=== PATIENT | male | born 1940 | race Caucasian/White ===

== ENCOUNTER 2019-03-25 20:02 | Inpatient (IN) ==
--- NOTE | 2019-03-25 20:08 | Emergency Department Note ---
Disposition Clinical Impression: Pyelonephritis Sepsis Qualifiers: Sepsis type: sepsis due to unspecified organism Sepsis acute organ dysfunction status: without acute organ dysfunction Qualified Code(s): A41.9 - Sepsis, unspecified organism UTI (urinary tract infection) Qualifiers: Urinary tract infection type: acute cystitis Hematuria presence: without hematuria Qualified Code(s): N30.00 - Acute cystitis without hematuria Disposition: Admitted As Inpatient Condition: Fair Time of Disposition: 23:56 General Adult HPI - General Stated complaint: Generalized Weakness Time Seen by Provider: 03/25/19 20:04 - Related Data Home Medications Medication Instructions Recorded Confirmed Aspirin [Lo-Dose Aspirin EC] 81 mg PO HS 03/25/19 03/25/19 Betamethasone Valerate 60 ml TP BID 03/25/19 03/25/19 Calcium Carbonate [Calcium] 500 mg PO BID 03/25/19 03/25/19 Cetirizine HCl [Zyrtec] 10 mg PO HS 03/25/19 03/25/19 Ergocalciferol (VITAMIN D2) 50,000 unit PO Q30D 03/25/19 03/25/19 [Vitamin D2] Fluticasone Propionate Nasal 50 mcg NS DAILY PRN 03/25/19 03/25/19 [Flonase] Glimepiride [Amaryl] 4 mg PO QAM 03/25/19 03/25/19 Levothyroxine [Synthroid] 125 mcg PO 0630 03/25/19 03/25/19 Multivitamin with Minerals/Lut 1 each PO DAILY 03/25/19 03/25/19 [Cerovite Senior Tablet] Potassium Chloride [Klor-Con 10] 20 meq PO DAILY 03/25/19 03/25/19 Simvastatin [Zocor] 20 mg PO HS 03/25/19 03/25/19 Sitagliptin Phos/Metformin HCl 1 each PO BIDWM 03/25/19 03/25/19 [Janumet 50-1,000 mg Tablet] Triamcinolone Acet 0.1% CRM 1 appl TP DAILY PRN 03/25/19 03/25/19 [Kenalog] Triamterene/Hydrochlorothiazid 0.5 tab PO MOWEFR 03/25/19 03/25/19 [Triamterene-Hctz 75-50 mg Tab] Allergies Allergy/AdvReac Type Severity Reaction Status Date / Time oxycodone AdvReac Rash Verified 03/25/19 20:05 Course Vital Signs Temperature 101.1 F H 03/25/19 20:05 Pulse Rate 90 03/25/19 20:05 Respiratory Rate 20 03/25/19 20:05 Blood Pressure 142/54 03/25/19 20:05 O2 Sat by Pulse Oximetry 96 03/25/19 20:05 Temperature 101.1 F H 03/25/19 20:05 Pulse Rate 80 03/25/19 22:44 Respiratory Rate 22 03/25/19 22:44 Blood Pressure 135/66 03/25/19 22:44 O2 Sat by Pulse Oximetry 95 03/25/19 22:44 Oxygen Delivery Oxygen Delivery Room Air Medical Decision Making - Lab Data Result diagrams: 03/25/19 20:05 03/25/19 20:05 Lab Results 03/25/19 03/25/19 03/25/19 Range/Units 20:05 20:05 20:36 WBC 7.1 (4.3-11.1) K/mcL RBC 4.35 (4.19-5.50) M/mcL Hgb 12.8 L (12.9-16.9) g/dL Hct 38.3 (37.5-50.1) % MCV 88.0 (83.0-100.0) fL MCH 29.4 (28.0-33.3) pg MCHC 33.4 (31.6-35.5) g/dL RDW 15.0 H (11.5-14.5) % Plt Count 92 L (140-400) K/mcL MPV 10.8 (9.4-12.4) fL Immature Gran % 0.3 (0-4) % Seg Neutrophils % 82.6 % Lymphocytes % 6.4 % Monocytes % 10.4 % Eosinophils % 0.0 % Basophils % 0.3 % Neutrophils # 5.9 (1.6-8.9) K/mcL Lymphocytes # 0.5 L (0.6-4.6) K/mcL Monocytes # 0.7 (0.0-1.3) K/mcL Eosinophils # 0.0 (0.0-0.6) K/mcL Basophils # 0.0 (0.0-0.2) K/mcL Immature Plt Fraction 3.3 (1.1-6.1) % Sodium 130 L (136-145) mEq/L Potassium 3.7 (3.5-5.1) mEq/L Chloride 96 L (98-107) mEq/L Carbon Dioxide 24 (23-29) mEq/L BUN 20 (8-23) mg/dL Creatinine 1.41 H (0.70-1.30) mg/dL Est GFR ( Amer) 59 L (> 60) Est GFR (Non-Af Amer) 48 L (> 60) BUN/Creatinine Ratio 14 (6-26) Glucose 361 H (70-105) mg/dL Calculated Osmolality 287 (280-300) Lactic Acid 3.9 H (0.5-2.2) mmol/L Calcium 8.4 L (8.6-10.3) mg/dL Phosphorus 1.7 L (2.7-4.5) mg/dL Magnesium 1.7 (1.6-2.6) mg/dL Troponin I < 0.03 (< 0.04) ng/mL Urine Color (Yellow) Urine Clarity (Clear) Urine pH (5.0-8.0) pH Units Ur Specific [place] (1.010-1.025) Urine Protein (Neg-Trace) mg/dL Urine Glucose (UA) (Normal) mg/dL Urine Ketones (Negative) mg/dL Urine Blood (Negative) Urine Nitrite (Negative) Urine Bilirubin (Negative) Urine Urobilinogen (Normal) mg/dL Ur Leukocyte Esterase (Negative) Urine Microscopic RBC (0-3) per hpf Urine Microscopic WBC (0-3) per hpf Ur Squamous Epith Cells (None-Few) per lpf Ur Renal Epithelial Cell (None-Few) per hpf Urine Bacteria (None-Few) per hpf Hyaline Casts (None-Few) per lpf Urine Mucus (Few) Urine Yeast (None Seen) per hpf Ur Culture Indicated? (NO) 03/25/19 Range/Units 20:46 WBC (4.3-11.1) K/mcL RBC (4.19-5.50) M/mcL Hgb (12.9-16.9) g/dL Hct (37.5-50.1) % MCV (83.0-100.0) fL MCH (28.0-33.3) pg MCHC (31.6-35.5) g/dL RDW (11.5-14.5) % Plt Count (140-400) K/mcL MPV (9.4-12.4) fL Immature Gran % (0-4) % Seg Neutrophils % % Lymphocytes % % Monocytes % % Eosinophils % % Basophils % % Neutrophils # (1.6-8.9) K/mcL Lymphocytes # (0.6-4.6) K/mcL Monocytes # (0.0-1.3) K/mcL Eosinophils # (0.0-0.6) K/mcL Basophils # (0.0-0.2) K/mcL Immature Plt Fraction (1.1-6.1) % Sodium (136-145) mEq/L Potassium (3.5-5.1) mEq/L Chloride (98-107) mEq/L Carbon Dioxide (23-29) mEq/L BUN (8-23) mg/dL Creatinine (0.70-1.30) mg/dL Est GFR ( Amer) (> 60) Est GFR (Non-Af Amer) (> 60) BUN/Creatinine Ratio (6-26) Glucose (70-105) mg/dL Calculated Osmolality (280-300) Lactic Acid (0.5-2.2) mmol/L Calcium (8.6-10.3) mg/dL Phosphorus (2.7-4.5) mg/dL Magnesium (1.6-2.6) mg/dL Troponin I (< 0.04) ng/mL Urine Color Yellow (Yellow) Urine Clarity Turbid A (Clear) Urine pH 7.0 (5.0-8.0) pH Units Ur Specific [place] 1.022 (1.010-1.025) Urine Protein 100 H (Neg-Trace) mg/dL Urine Glucose (UA) 500 H (Normal) mg/dL Urine Ketones Trace H (Negative) mg/dL Urine Blood Large H (Negative) Urine Nitrite Negative (Negative) Urine Bilirubin Negative (Negative) Urine Urobilinogen Normal (Normal) mg/dL Ur Leukocyte Esterase Large H (Negative) Urine Microscopic RBC Present (0-3) per hpf Urine Microscopic WBC TNTC H (0-3) per hpf Ur Squamous Epith Cells Many H (None-Few) per lpf Ur Renal Epithelial Cell Present (None-Few) per hpf Urine Bacteria Many H (None-Few) per hpf Hyaline Casts None Seen (None-Few) per lpf Urine Mucus Present (Few) Urine Yeast Present H (None Seen) per hpf Ur Culture Indicated? YES A (NO) Attestation Statement - Attestation Attestation: I reviewed the residents documentation and agree with the residents assessment and plan of care. I have personally had face to face time with the patient. (Brief History, Brief Exam, and MDM) I personally supervised and was present for the bailey/critical portions of the following procedures completed by the resident: (add procedures performed here). Face to face time provided in conjunction with Dr. Jimenez, resident physician Patient arrives by EMS from home. He states he feels generally weak. He had difficulty getting out of his chair prior to arrival. Per my exam he is alert and oriented and appears in no acute distress
[2019-03-25] MEDS ORDERED: 0.9 % Sodium Chloride 1,000 ML IVC ONE ×3 (20:23→22:05)
--- NOTE | 2019-03-25 20:24 | Emergency Department Note ---
Disposition Clinical Impression: Pyelonephritis Sepsis Qualifiers: Sepsis type: sepsis due to unspecified organism Sepsis acute organ dysfunction status: without acute organ dysfunction Qualified Code(s): A41.9 - Sepsis, unspecified organism UTI (urinary tract infection) Qualifiers: Urinary tract infection type: acute cystitis Hematuria presence: without hematuria Qualified Code(s): N30.00 - Acute cystitis without hematuria Disposition: Admitted As Inpatient Condition: Fair Forms: ED Satisfaction Letter Time of Disposition: 22:08 General Adult HPI - General Chief complaint: ED Weakness Stated complaint: Generalized Weakness Time Seen by Provider: 03/25/19 20:04 Source: EMS Limitations: no limitations Nursing Notes Reviewed: Yes Vital Signs Reviewed: Yes - History of Present Illness HPI Narrative: Patient is an 78-year-old male presenting with fever. Patient with known history of hypertension, hyperlipidemia and diabetes. Patient has been feeling unwell for the past few days, progressively worse today with dysuria and increased frequency and urinary incontinence. He also states he has been having some bilateral flank pain. He has not recently been on any antibiotics or new medications. He does follow with the urologist for history of BPH. He has had subjective fevers and chills, he has not actually taken his temperature. He also has had some nausea without vomiting. No abdominal pain. He denies any chest pain, shortness of breath or change in cough. No sputum production. He denies any recent falls, trauma or injury. He did he is not on any blood thinners. Pain Scale: 5 - Related Data Home Medications Medication Instructions Recorded Confirmed Aspirin [Lo-Dose Aspirin EC] 81 mg PO 03/25/19 Betamethasone Valerate 60 ml TP 03/25/19 03/25/19 Calcium Carbonate [Calcium] 500 mg PO 03/25/19 Cetirizine HCl [Zyrtec] 10 mg PO 03/25/19 Cholecalciferol (D-3) [Vitamin D] 5,000 unit PO DAILY 03/25/19 03/25/19 Fluticasone Propionate Nasal 50 mcg NS 03/25/19 [Flonase] Glimepiride [Amaryl] 4 mg PO 03/25/19 Levothyroxine [Synthroid] 125 mcg PO 0630 03/25/19 03/25/19 Multivitamin with Minerals/Lut 1 each PO 03/25/19 [Cerovite Senior Tablet] Potassium Chloride [Klor-Con 10] 10 meq PO 03/25/19 Simvastatin [Zocor] 20 mg PO HS 03/25/19 03/25/19 Sitagliptin Phos/Metformin HCl 1 each PO 03/25/19 [Janumet 50-1,000 mg Tablet] Triamcinolone Acet 0.1% CRM 1 appl TP ONCE 03/25/19 03/25/19 [Kenalog] Triamterene/Hydrochlorothiazid 1 each PO 03/25/19 [Triamterene-Hctz 75-50 mg Tab] Allergies Allergy/AdvReac Type Severity Reaction Status Date / Time oxycodone AdvReac Rash Verified 03/25/19 20:05 All systems ED: reviewed and negative except as stated. Review of Systems: As Per HPI Constitutional: Reports: fever, chills ENT ED: Denies: congestion Cardiovascular: Denies: chest pain, palpitations, dyspnea on exertion, syncope Respiratory: Denies: cough, dyspnea (We will be calling urine cells many tattoos further), wheezes Gastrointestinal: Reports: nausea. Denies: abdominal pain, vomiting, diarrhea, hematemesis, melena, hematochezia Genitourinary: Reports: urgency, dysuria, frequency. Denies: hematuria, discharge, testicular mass, genital lesions Musculoskeletal: Reports: back pain Integumentary: Denies: rash Neurological: Denies: headache, weakness Endocrine: Reports: fatigue Past Medical History - Past Medical History Medical history: Reports: diabetes Psychiatric history: Reports: no psych history - Social History Smoking Status: Never smoker Smokeless Tobacco Status: No Alcohol use: Reports: occasionally Drug use: Reports: none Physical Exam General: Conversant. No apparent distress. Follow commands. Appears stated age. Patient is lightly diaphoretic on examination. Neck: No JVD. Trachea midline. Neck supple. Eyes: PERRL. No scleral icterus. HENT: Normocephalic and atraumatic. Moist mucus membranes. Cardiovascular: Regular rate and rhythm. Normal S1 and S2. No murmurs appreciated. Normal capillary refill. Extremities well perfused with 2+ distal pulses bilaterally. No edema. Pulmonary: Normal and equal breath sounds bilaterally, anteriorly and posteriorly. No wheezes, rales, or rhonchi. Not in respiratory distress. Speaks in full sentences. Abdomen: Soft, nondistended, without tenderness. No bruits or masses. No guarding or rebound. Patient with bilateral CVA tenderness on exam. Neuro: Alert and oriented x3. No slurred speech. No focal deficits noted. Skin: No rashes noted on visualized skin. Musculoskeletal: No bony abnormalities visualized. Moves all extremities. Psych: Normal mood. Pleasant. Makes appropriate eye contact. - General Limitations: no limitations General appearance: alert, in no apparent distress Course Vital Signs Temperature 101.1 F H 03/25/19 20:05 Pulse Rate 90 03/25/19 20:05 Respiratory Rate 20 03/25/19 20:05 Blood Pressure 142/54 03/25/19 20:05 O2 Sat by Pulse Oximetry 96 03/25/19 20:05 Temperature 101.1 F H 03/25/19 20:05 Pulse Rate 90 03/25/19 20:05 Respiratory Rate 20 03/25/19 20:05 Blood Pressure 142/54 03/25/19 20:05 O2 Sat by Pulse Oximetry 96 03/25/19 20:05 Oxygen Delivery Oxygen Delivery Room Air Medical Decision Making - [facility] Narrative Medical decision making narrative: Patient is an 78-year-old male presenting with fever. On arrival, patient is slightly diaphoretic with fever of 101.1, he is heart rate of 95 bpm in the room. Clears also patient bilaterally. Patient otherwise denies chest pain or shortness of breath. Patient with dysuria for the past few days worsening with generalized weakness and fatigue. Patient was initially given a liter of fluids, Tylenol on arrival. Patient otherwise is remained stable here in the ER. Initial concern for infectious etiology including pneumonia, urinary tract infection, versus cardiac etiology. Chest x-ray shows no focal opacification, patient without cough or sputum production, patient without leukocytosis. Patient does have concerning signs for pyelonephritis with positive leuk esterase and many urine bacteria, no nitrates, this will be cultured. Patient with bilateral flank pain as well, with this as well as fever, concern for pyelonephritis. Patient was given a second liter of fluids at this time with concern for source of urinary tract infection with possible pyelonephritis. Patient was also given his third liter of saline bolus. Patient was started on Rocephin. Blood cultures were obtained as well as lactic acid which is elevated at 3.9. Patient slightly hyponatremic, with fluid resuscitation, this would be appropriate at this time. Patient has not been hypotensive at any time while here in the ER. Patient has otherwise had no change in altered mentation, he does have Sirs criteria with source of most likely urinary tract infec tion/pyelonephritis. Patient will be admitted for further observation and treatment here in the hospital. Patient and daughter in the room agree with disposition. - Medical Records Medical records reviewed: Yes I reviewed the patient's medical records. - Lab Data Lab results reviewed: Yes I reviewed the patient's lab results. Result diagrams: 03/25/19 20:05 03/25/19 20:05 Lab Results 03/25/19 03/25/19 03/25/19 Range/Units 20:05 20:05 20:36 WBC 7.1 (4.3-11.1) K/mcL RBC 4.35 (4.19-5.50) M/mcL Hgb 12.8 L (12.9-16.9) g/dL Hct 38.3 (37.5-50.1) % MCV 88.0 (83.0-100.0) fL MCH 29.4 (28.0-33.3) pg MCHC 33.4 (31.6-35.5) g/dL RDW 15.0 H (11.5-14.5) % Plt Count 92 L (140-400) K/mcL MPV 10.8 (9.4-12.4) fL Immature Gran % 0.3 (0-4) % Seg Neutrophils % 82.6 % Lymphocytes % 6.4 % Monocytes % 10.4 % Eosinophils % 0.0 % Basophils % 0.3 % Neutrophils # 5.9 (1.6-8.9) K/mcL Lymphocytes # 0.5 L (0.6-4.6) K/mcL Monocytes # 0.7 (0.0-1.3) K/mcL Eosinophils # 0.0 (0.0-0.6) K/mcL Basophils # 0.0 (0.0-0.2) K/mcL Immature Plt Fraction 3.3 (1.1-6.1) % Sodium 130 L (136-145) mEq/L Potassium 3.7 (3.5-5.1) mEq/L Chloride 96 L (98-107) mEq/L Carbon Dioxide 24 (23-29) mEq/L BUN 20 (8-23) mg/dL Creatinine 1.41 H (0.70-1.30) mg/dL Est GFR ( Amer) 59 L (> 60) Est GFR (Non-Af Amer) 48 L (> 60) BUN/Creatinine Ratio 14 (6-26) Glucose 361 H (70-105) mg/dL Calculated Osmolality 287 (280-300) Lactic Acid 3.9 H (0.5-2.2) mmol/L Calcium 8.4 L (8.6-10.3) mg/dL Phosphorus 1.7 L (2.7-4.5) mg/dL Magnesium 1.7 (1.6-2.6) mg/dL Troponin I < 0.03 (< 0.04) ng/mL Urine Color (Yellow) Urine Clarity (Clear) Urine pH (5.0-8.0) pH Units Ur Specific [place] (1.010-1.025) Urine Protein (Neg-Trace) mg/dL Urine Glucose (UA) (Normal) mg/dL Urine Ketones (Negative) mg/dL Urine Blood (Negative) Urine Nitrite (Negative) Urine Bilirubin (Negative) Urine Urobilinogen (Normal) mg/dL Ur Leukocyte Esterase (Negative) Urine Microscopic RBC (0-3) per hpf Urine Microscopic WBC (0-3) per hpf Ur Squamous Epith Cells (None-Few) per lpf Ur Renal Epithelial Cell (None-Few) per hpf Urine Bacteria (None-Few) per hpf Hyaline Casts (None-Few) per lpf Urine Mucus (Few) Urine Yeast (None Seen) per hpf Ur Culture Indicated? (NO) 03/25/19 Range/Units 20:46 WBC (4.3-11.1) K/mcL RBC (4.19-5.50) M/mcL Hgb (12.9-16.9) g/dL Hct (37.5-50.1) % MCV (83.0-100.0) fL MCH (28.0-33.3) pg MCHC (31.6-35.5) g/dL RDW (11.5-14.5) % Plt Count (140-400) K/mcL MPV (9.4-12.4) fL Immature Gran % (0-4) % Seg Neutrophils % % Lymphocytes % % Monocytes % % Eosinophils % % Basophils % % Neutrophils # (1.6-8.9) K/mcL Lymphocytes # (0.6-4.6) K/mcL Monocytes # (0.0-1.3) K/mcL Eosinophils # (0.0-0.6) K/mcL Basophils # (0.0-0.2) K/mcL Immature Plt Fraction (1.1-6.1) % Sodium (136-145) mEq/L Potassium (3.5-5.1) mEq/L Chloride (98-107) mEq/L Carbon Dioxide (23-29) mEq/L BUN (8-23) mg/dL Creatinine (0.70-1.30) mg/dL Est GFR ( Amer) (> 60) Est GFR (Non-Af Amer) (> 60) BUN/Creatinine Ratio (6-26) Glucose (70-105) mg/dL Calculated Osmolality (280-300) Lactic Acid (0.5-2.2) mmol/L Calcium (8.6-10.3) mg/dL Phosphorus (2.7-4.5) mg/dL Magnesium (1.6-2.6) mg/dL Troponin I (< 0.04) ng/mL Urine Color Yellow (Yellow) Urine Clarity Turbid A (Clear) Urine pH 7.0 (5.0-8.0) pH Units Ur Specific [place] 1.022 (1.010-1.025) Urine Protein 100 H (Neg-Trace) mg/dL Urine Glucose (UA) 500 H (Normal) mg/dL Urine Ketones Trace H (Negative) mg/dL Urine Blood Large H (Negative) Urine Nitrite Negative (Negative) Urine Bilirubin Negative (Negative) Urine Urobilinogen Normal (Normal) mg/dL Ur Leukocyte Esterase Large H (Negative) Urine Microscopic RBC Present (0-3) per hpf Urine Microscopic WBC TNTC H (0-3) per hpf Ur Squamous Epith Cells Many H (None-Few) per lpf Ur Renal Epithelial Cell Present (None-Few) per hpf Urine Bacteria Many H (None-Few) per hpf Hyaline Casts None Seen (None-Few) per lpf Urine Mucus Present (Few) Urine Yeast Present H (None Seen) per hpf Ur Culture Indicated? YES A (NO) - Radiology Data Radiology results reviewed: Yes I reviewed the patient's radiology results. Chest X-Ray 03/25/19 20:25 IMPRESSION: Mild central congestion with cardiomegaly. D/ / Michael Sutherland / Michael Sutherland Interpreting Provider: Michael Sutherland - EKG Data EKG #1 EKG attestation: Yes I reviewed and interpreted this EKG. EKG results narrative: EKG performed at 20 0-1 with ventricular rate of 88, regular rhythm, left axis, no ST segment elevation, depression or T-wave changes. In comparison to old EKG performed in 2014 this is unchanged.
[2019-03-25 20:35] LABS: Basophils % 0.3 %; Immature Granulocytes % 0.3 % (0-4)
[2019-03-25 20:37] LABS: Hematocrit 38.3 % (37.5-50.1); Hemoglobin 12.8 g/dL (12.9-16.9); Immature Platelets 3.3 % (1.1-6.1); Lymphocytes # 0.5 K/mcL (0.6-4.6); Lymphocytes % 6.4 %; Mean Corpuscular HGB Conc 33.4 g/dL (31.6-35.5); Mean Corpuscular Hemoglobin 29.4 pg (28.0-33.3); Mean Platelet Volume 10.8 fL (9.4-12.4); Monocytes # 0.7 K/mcL (0.0-1.3); Monocytes % 10.4 %; Neutrophils # 5.9 K/mcL (1.6-8.9); Red Blood Count 4.35 M/mcL (4.19-5.50); Segmented Neutrophils % 82.6 %; White Blood Count 7.1 K/mcL (4.3-11.1)
[2019-03-25 20:57] LABS: Bilirubin,Urine Negative (Negative); Blood,Urine Large (Negative); Clarity,Urine Turbid (Clear); Color,Urine Yellow (Yellow); Glucose,Urine (UA) 500 mg/dL (Normal); Ketones,Urine Trace mg/dL (Negative); Leukocyte Esterase,Urine Large (Negative); Nitrite,Urine Negative (Negative); Protein,Urine 100 mg/dL (Neg-Trace); Specific Gravity,Urine 1.022 (1.010-1.025); Urobilinogen,Urine Normal (Normal)
[2019-03-25 20:57] LABS: BUN/Creatinine Ratio 14 (6-26); Blood Urea Nitrogen 20 mg/dL (8-23); Calcium 8.4 mg/dL (8.6-10.3); Carbon Dioxide 24 mEq/L (23-29); Chloride 96 mEq/L (98-107); Glucose 361 mg/dL (70-105); Magnesium 1.7 mg/dL (1.6-2.6); Osmolality,Calculated 287 (280-300); Phosphorous 1.7 mg/dL (2.7-4.5); Potassium 3.7 mEq/L (3.5-5.1); Sodium 130 mEq/L (136-145); Troponin I < 0.03 ng/mL (< 0.04); eGFR For African Americans 59 (> 60); eGFR For Non-African Americans 48 (> 60)
[2019-03-25 21:00] LABS: Bacteria,Urine Many per hpf (None-Few); Squamous Epithelial Cell,Urine Many per lpf (None-Few); WBC,Urine TNTC per hpf (0-3)
[2019-03-25 21:06] LABS: Platelet Count 92 K/mcL (140-400)
[2019-03-25 21:20] LABS: RBC,Urine Present per hpf (0-3); Renal Epithelial Cells,Urine Present per hpf (None-Few)
[2019-03-25 21:22] LABS: Hyaline Casts,Urine None Seen per lpf (None-Few); Mucus,Urine Present (Few)
[2019-03-25 21:23] LABS: Yeast,Urine Present per hpf (None Seen)
[2019-03-25] MEDS ORDERED: cefTRIAXone 1,000 MG in 0.9 % Sodium Chloride Mini Bag 100 ML IVPB ONE (21:55)
[2019-03-25] MEDS ORDERED: cefTRIAXone 1,000 MG in Water for inj. (sterile) 10 ML IVP ONE (22:10)
[2019-03-25] MEDS ORDERED: Water for inj. (sterile) 10 ML ONE (22:12)
--- NOTE | 2019-03-25 23:54 | Internal Med History&Physical ---
<Dorina Brownlee - Last Filed: 03/26/19 00:31> Date of Encounter: 03/26/19 Time of Encounter: 23:53 Internal Medicine - H&P: HPI Chief complaint: Weakness Admitted From: Emergency Dept Plans for Post Hospital Care: Home History of present illness: Mr. Bassett is a 78 year old male with a past medical history of diabetes, hypothyroidism, BPH who presented to [facility] complaining of weakness. He stated that the past 3 days he has had lower back ache along with foul-smelling urine, increased urinary frequency, darker urine. Additionally, he has had chills, decreased appetite with poor oral intake, nausea. He denied fever, dysuria, hematuria, chest pain, shortness of breath, abdominal pain, diarrhea. He reports having UTIs in the past with the most recent 1 year ago and he believes this feels similar to past UTIs. Over the past few days he feels he has become weaker and today he had difficulty standing from his recliner so he decided to come to ED to be evaluated. He denies urinary catheterization or recent urological procedure. He has history of BPH having undergone TURBT procedure 5 years ago by the urologist Dr. Gilliland. Since then he no longer has difficulty urinating. He denies smoking, alcohol, drug use. He has family history of father having MT. He is a full code. In the ED he was given ceftriaxone, Tylenol, 3L IVF. Urine and blood cultures were ordered. -Initial vitals were 101.1F, HR 90, RR 20, BP 142/54, SpO2 96% on room air. WBC 7.1, sodium 130, creatinine 1.41, lactic acid 3.9, phosphorus 1.7, magnesium 1.7, troponin <0.03. Urinalysis with large blood, RBC present, large leukocyte esterase, WBC TNTC, ketones. Chest x-ray showing mild central congestion with c ardiomegaly no acute process. Past Med Surg Social Fam HX - Past Medical History Attestation: Yes The following information was validated with the patient. Source: patient Medical history: diabetes, thyroid disease Psychiatric history: no psych history - Past Surgical History Additional surgical history: turp - Social History Smoking Status: Never smoker Smokeless Tobacco Status: No Alcohol use: occasionally Drug use: none - Family History Father Hx Family Cardiac Disorders: Yes (MT) Internal Medicine - H&P: Meds Aspirin [Lo-Dose Aspirin EC] 81 mg PO HS 03/25/19 [History] Betamethasone Valerate 60 ml TP BID 03/25/19 [History] Calcium Carbonate [Calcium] 500 mg PO BID 03/25/19 [History] Cetirizine HCl [Zyrtec] 10 mg PO HS 03/25/19 [History] Ergocalciferol (VITAMIN D2) [Vitamin D2] 50,000 unit PO Q30D 03/25/19 [History] Fluticasone Propionate Nasal [Flonase] 50 mcg NS DAILY PRN 03/25/19 [History] Glimepiride [Amaryl] 4 mg PO QAM 03/25/19 [History] Levothyroxine [Synthroid] 125 mcg PO 0630 03/25/19 [History] Multivitamin with Minerals/Lut [Cerovite Senior Tablet] 1 each PO DAILY 03/25/19 [History] Potassium Chloride [Klor-Con 10] 20 meq PO DAILY 03/25/19 [History] Simvastatin [Zocor] 20 mg PO HS 03/25/19 [History] Sitagliptin Phos/Metformin HCl [Janumet 50-1,000 mg Tablet] 1 each PO BIDWM 03/25/19 [History] Triamcinolone Acet 0.1% CRM [Kenalog] 1 appl TP DAILY PRN 03/25/19 [History] Triamterene/Hydrochlorothiazid [Triamterene-Hctz 75-50 mg Tab] 0.5 tab PO MOWEFR 03/25/19 [History] Allergy/AdvReac Type Severity Reaction Status Date / Time oxycodone AdvReac Rash Verified 03/25/19 20:05 All Systems PM: A 10-system review of systems was performed and is negative for pertinent findings except as documented above in the HPI. - Constitutional Constitutional: chills, fatigue, weakness, no fever(s) - EENT Eyes: no change in vision - Cardiovascular Cardiovascular ROS IM: no chest pain, no palpitations - Respiratory Respiratory: no cough, no dyspnea, no wheezing - Gastrointestinal Gastrointestinal: nausea, no abdominal pain, no diarrhea, no vomiting - Genitourinary Genitourinary ROS male: urinary frequency, other (Foul-smelling urine and darker urine), no difficulty urinating, no dysuria, no flank pain, no hematuria - Musculoskeletal Musculoskeletal ROS IM: back pain (Lumbar region), no muscle cramps - Integumentary Integumentary IM: no rash, no skin ulcer - Neurological Neurological ROS: no frequent falls, no headache(s) - Constitutional Vitals: Temp Pulse Resp BP Pulse Ox 101.1 F H 80 22 135/66 95 03/25/19 20:05 03/25/19 22:44 03/25/19 22:44 03/25/19 22:44 03/25/19 22:44 Exam: Gen.: Vitals noted. No acute distress. AAOx3 HEENT: oropharynx clear, Normocephalic, atraumatic Cardiac: RRR, no murmur, +S1/S2 Pulmonary: CTA bilaterally, no wheezes, rales or rhonchi, equal chest expansion Abdomen: soft, mild LLQ tender, Bowel sounds noted, no guarding Back: Nontender throughout, no CVA tenderness MSK: ROM intact, no joint swelling noted Extremities: no BLE edema, nontender calf Neuro: A&Ox3, moves all extremities, no focal deficits Psych: Appropriate mood and behavior Internal Med - H&P Results - Labs CBC & Chem 7: 03/25/19 20:05 03/25/19 20:05 Labs: Short CBC 03/25/19 Range/Units 20:05 WBC 7.1 (4.3-11.1) K/mcL Hgb 12.8 L (12.9-16.9) g/dL Hct 38.3 (37.5-50.1) % Plt Count 92 L (140-400) K/mcL Neutrophils # 5.9 (1.6-8.9) K/mcL BMP 03/25/19 20:05 Sodium 130 L Potassium 3.7 Chloride 96 L Carbon Dioxide 24 BUN 20 Creatinine 1.41 H Glucose 361 H Calcium 8.4 L Cardiac Enzymes 03/25/19 Range/Units 20:05 Troponin I < 0.03 (< 0.04) ng/mL Urine 03/25/19 Range/Units 20:46 Urine Color Yellow (Yellow) Urine Clarity Turbid A (Clear) Urine pH 7.0 (5.0-8.0) pH Units Ur Specific [place] 1.022 (1.010-1.025) Urine Protein 100 H (Neg-Trace) mg/dL Urine Glucose (UA) 500 H (Normal) mg/dL - Impressions ITS Impressions Chest X-Ray 03/25/19 20:25 IMPRESSION: Mild central congestion with cardiomegaly. D/ / Michael Sutherland / Michael Sutherland Interpreting Provider: Michael Sutherland - Assessment and Plan (1) Sepsis Current Visit: Yes Status: Acute Assessment and plan: Patient presented meeting sepsis criteria with 2 SIRS: 101.1F, HR 90. Lactic acid 3.9. Patient given ceftriaxone in ED. -this is likely secondary to pyelonephritis at the patient has history of UTI in this feels similar to past UTI. He is had backache, chills, nausea, decreased appetite, fever, foul-smelling urine, dark urine, increased urinary frequency. No recent urinary catheterization or urological procedure. -WBC 7.1, hemodynamically stable -Urinalysis with large blood, RBC present, large leukocyte esterase, WBC TNTC, ketones. -Chest x-ray showing mild central congestion with cardiomegaly no acute process. -On examination patient does not have CVA tenderness. There is mild LLQ tenderness. plan: -continue ceftriaxone and await urine culture results -continue IVF bolus to meet fluid resuscitation of 30ml/kg -urine culture pending -blood culture pending -lactic acid pending Qualifiers: Sepsis type: sepsis due to unspecified organism Sepsis acute organ dysfunction status: without acute organ dysfunction Qualified Code(s): A41.9 - Sepsis, unspecified organism (2) Pyelonephritis Current Visit: Yes Status: Acute Assessment and plan: Patient likely has acute pyelonephritis as the patient has history of UTI in this feels similar to past UTI. He is had backache, chills, nausea, decreased appetite, fever, foul-smelling urine, dark urine, increased urinary frequency. No recent urinary catheterization or urological procedure. -WBC 7.1, hemodynamically stable, 101.1F -Urinalysis with large blood, RBC present, large leukocyte esterase, WBC TNTC, ketones. -On examination patient does not have CVA tenderness. There is mild LLQ t enderness. (3) UTI (urinary tract infection) Current Visit: Yes Status: Acute Assessment and plan: Complicated urinary tract infection with pyelonephritis Urinalysis with large blood, RBC present, large leukocyte esterase, WBC TNTC, ketones. Chest x-ray showing mild central congestion with cardiomegaly no acute process. - Plan as above Qualifiers: Urinary tract infection type: acute cystitis Hematuria presence: without hematuria Qualified Code(s): N30.00 - Acute cystitis without hematuria (4) SHAWNA (acute kidney injury) Current Visit: Yes Status: Acute Assessment and plan: Acute kidney injury likely prerenal in the setting of sepsis and pyelonephritis. Creatinine at admission 1.41 -baseline creatinine 1.1 plan: -continue IV fluids -continue monitor serum creatinine -continue monitor I&O -continue renal protective strategy including renal dust medications and avoid nephrotoxic agents (5) Serum phosphorus decreased Current Visit: Yes Status: Acute Assessment and plan: Low serum phosphorus likely secondary to poor oral intake of the past few days. Phosphorus 1.7 on admission -will supplement phosphorus and recheck later (6) Hyponatremia Current Visit: Yes Status: Acute Assessment and plan: Mild Hyponatremia that is likely secondary to poor oral intake. Sodium 130 on admission. -continue IV fluids and monitor (7) Diabetes mellitus Current Visit: Yes Status: Acute Assessment and plan: History of diabetes taking oral medications. -Glucose elevated -continue medium dose sliding scale insulin -continue diabetic diet -continue Accu checks Qualifiers: Diabetes mellitus type: type 2 Diabetes mellitus moth exterminator insulin use: without moth exterminator use Qualified Code(s): E11.9 - Type 2 diabetes mellitus without complications (8) Hypothyroidism Current Visit: Yes Status: Acute Assessment and plan: History of hyperthyroidism taking levothyroxine. Continue home medication. Qualifiers: Hypothyroidism type: unspecified Qualified Code(s): E03.9 - Hypothyroidism, unspecified (9) DVT prophylaxis Current Visit: Yes Status: Acute Assessment and plan: Heparin SQ (10) Weakness Current Visit: Yes Status: Acute Assessment and plan: Increased weakness is likely secondary to acute pyelonephritis. Treatment as above. - Time Spent With Patient Total time spent is greater than 50% in coordination of care (as documented) at patient's floor/unit and/or counseling patient: <Thomas Townsend - Last Filed: 03/26/19 06:24> Date of Encounter: 03/26/19 Internal Medicine - H&P: HPI History of present illness: Mr. Bassett is a 78 year old male All Systems PM: A 10-system review of systems was performed and is negative for pertinent findings except as documented above in the HPI. - Constitutional Vitals: Temp Pulse Resp BP Pulse Ox 102.8 F H 84 25 179/65 98 03/26/19 04:15 03/26/19 04:15 03/26/19 05:36 03/26/19 04:15 03/26/19 05:36 Internal Med - H&P Results - Labs CBC & Chem 7: 03/26/19 00:29 03/26/19 00:29 Labs: Short CBC 03/25/19 03/26/19 Range/Units 20:05 00:29 WBC 7.1 5.9 (4.3-11.1) K/mcL Hgb 12.8 L 11.0 L D (12.9-16.9) g/dL Hct 38.3 33.1 L (37.5-50.1) % Plt Count 92 L 89 L (140-400) K/mcL Neutrophils # 5.9 4.7 (1.6-8.9) K/mcL BMP 03/25/19 03/26/19 20:05 00:29 Sodium 130 L 133 L Potassium 3.7 3.4 L Chloride 96 L 102 Carbon Dioxide 24 22 L BUN 20 19 Creatinine 1.41 H 1.28 Glucose 361 H 183 H Calcium 8.4 L 7.7 L Cardiac Enzymes 03/25/19 Range/Units 20:05 Troponin I < 0.03 (< 0.04) ng/mL Urine 03/25/19 Range/Units 20:46 Urine Color Yellow (Yellow) Urine Clarity Turbid A (Clear) Urine pH 7.0 (5.0-8.0) pH Units Ur Specific [place] 1.022 (1.010-1.025) Urine Protein 100 H (Neg-Trace) mg/dL Urine Glucose (UA) 500 H (Normal) mg/dL - Impressions ITS Impressions Chest X-Ray 03/25/19 20:25 IMPRESSION: Mild central congestion with cardiomegaly. D/ / Michael Sutherland / Michael Sutherland Interpreting Provider: Michael Sutherland - Assessment and Plan (1) Sepsis Current Visit: Yes Status: Acute Qualifiers: Sepsis type: sepsis due to unspecified organism Sepsis acute organ dysfunction status: without acute organ dysfunction Qualified Code(s): A41.9 - Sepsis, unspecified organism (2) UTI (urinary tract infection) Current Visit: Yes Status: Acute Qualifiers: Urinary tract infection type: acute cystitis Hematuria presence: without hematuria Qualified Code(s): N30.00 - Acute cystitis without hematuria (3) Pyelonephritis Current Visit: Yes Status: Acute (4) SHAWNA (acute kidney injury) Current Visit: Yes Status: Acute (5) Serum phosphorus decreased Current Visit: Yes Status: Acute (6) DVT prophylaxis Current Visit: Yes Status: Acute (7) Hyponatremia Current Visit: Yes Status: Acute (8) Diabetes mellitus Current Visit: Yes Status: Acute Qualifiers: Diabetes mellitus type: type 2 Diabetes mellitus moth exterminator insulin use: without moth exterminator use Qualified Code(s): E11.9 - Type 2 diabetes mellitus without complications (9) Hypothyroidism Current Visit: Yes Status: Acute Qualifiers: Hypothyroidism type: unspecified Qualified Code(s): E03.9 - Hypothyroidism, unspecified (10) Weakness Current Visit: Yes Status: Acute - Time Spent With Patient Total time spent is greater than 50% in coordination of care (as documented) at patient's floor/unit and/or counseling patient: - Attending Attestation Patient seen and examined independently, including review of objective data including labs. I agree with plan of care as documented below by the resident. Acute pyelonephritis requiring IV antibiotics. Recommend US renal to check for abscess if no improvement or worsening.
[2019-03-26] MEDS ORDERED: Naloxone 0.4 MG/ML INJ IVP PRN (00:28)
[2019-03-26] MEDS ORDERED: Dextrose Gel 15 GM/37.5 ML TUBE PO PRN ×2 (00:35)
[2019-03-26] MEDS ORDERED: D5% in Water 1,000 ML IVC PRN (00:35)
[2019-03-26] MEDS ORDERED: *HR* Dextrose 50 % in Water (Syg) 50 ML SYRINGE IVP PRN (00:35)
[2019-03-26 00:43] LABS: Basophils % 0.2 %; Hematocrit 33.1 % (37.5-50.1); Immature Granulocytes % 0.3 % (0-4); Immature Platelets 3.1 % (1.1-6.1); Lymphocytes # 0.5 K/mcL (0.6-4.6); Lymphocytes % 7.6 %; Mean Corpuscular HGB Conc 33.2 g/dL (31.6-35.5); Mean Corpuscular Hemoglobin 29.3 pg (28.0-33.3); Mean Platelet Volume 10.7 fL (9.4-12.4); Monocytes # 0.7 K/mcL (0.0-1.3); Monocytes % 11.9 %; Neutrophils # 4.7 K/mcL (1.6-8.9); Red Blood Count 3.76 M/mcL (4.19-5.50); White Blood Count 5.9 K/mcL (4.3-11.1)
[2019-03-26 00:44] LABS: Platelet Count 89 K/mcL (140-400)
[2019-03-26 00:58] LABS: BUN/Creatinine Ratio 15 (6-26); Blood Urea Nitrogen 19 mg/dL (8-23); Calcium 7.7 mg/dL (8.6-10.3); Carbon Dioxide 22 mEq/L (23-29); Chloride 102 mEq/L (98-107); Glucose 183 mg/dL (70-105); Magnesium 1.6 mg/dL (1.6-2.6); Osmolality,Calculated 283 (280-300); Potassium 3.4 mEq/L (3.5-5.1); Sodium 133 mEq/L (136-145); eGFR For African Americans > 60 (> 60); eGFR For Non-African Americans 54 (> 60)
[2019-03-26] MEDS: Insulin LISPRO 300 UNITS/3 ML VIAL SQ SCH ×5 (01:47→20:34)
[2019-03-26] MEDS: Acetaminophen 325 MG TABLET PO PRN ×2 (05:09→20:26)
[2019-03-26] MEDS: *HR* Heparin 5,000 UNIT/ML VIAL SQ SCH ×3 (05:10→20:34)
[2019-03-26] MEDS ORDERED: cefTRIAXone 1,000 MG in Water for inj. (sterile) 10 ML IVP SCH (09:00)
--- NOTE | 2019-03-26 09:58 | Internal Med Progress Note ---
<Sergio Evans E - Last Filed: 03/26/19 11:50> Hospitalist Progress Note - Encounter Date of Encounter: 03/26/19 Time of Encounter: 08:55 - Subjective Interval History: Mr. Bassett is a 78 YOM with a history of diabetes, hypothyroidism, BPH who presented to [facility] ER complaining of weakness. He stated that the past 3 days he has had lower back ache along with foul-smelling urine, increased urinary frequency, darker urine. Additionally, he has had chills, decreased appetite with poor oral intake, nausea. He denied fever, dysuria, hematuria, chest pain, shortness of breath, abdominal pain, diarrhea. Patient states that he is still feeling chills, and like he is feverish. He says he has not felt nauseous today but that his appetite is still not great. He states his pain in his back/ LLQ is improved slightly from yesterday. He states when he urinates it is more painful today than previously. He states his urine is set up / operator than it was but still not much output. He is also complaining of a dry mouth. - Exam Vitals: Temp Pulse Resp BP Pulse Ox 99.5 F 92 18 105/66 92 03/26/19 06:48 03/26/19 06:48 03/26/19 06:48 03/26/19 06:48 03/26/19 06:48 Exam: General: Alert and oriented x3. No acute distress. Head: Normocephalic, atraumatic, PERRLA, EOMI. ENT: Trachea midline Cardiac: RRR, normal S1 S2 auscultated, no S3 or S4 auscultated. no rubs, gallops, murmurs. Pulmonary: CTA bilaterally, equal chest rise and fall, no rhonchi, rales, wheezing Abdomen: soft, non-distended, normal bowel sounds x4. Back: Nontender throughout, no CVA tenderness, negative lloyds punch. Extremities: Pulses equal bilaterally, moving spontaneously, no edema Neuro: alert and oriented x3. Cranial nerves grossly intact. No focal deficits Psych: Appropriate mood and behavior - Assessment and Plan (1) Severe sepsis Current Visit: Yes Status: Acute Assessment and Plan: Patient meets severe sepsis criteria with fever, tachycardia, tachypnea, lactic acid 3.9 -lactic acid 3.9 on admission, currently 1.8 -WBC 5.9, hemodynamically stable -Urinalysis with large blood, RBC present, large leukocyte esterase, WBC TNTC, ketones. -continue IVF -Chest x-ray showing mild central congestion with cardiomegaly no acute process. -continue ceftriaxone and await urine culture results -urine culture pending -blood culture pending (2) Pyelonephritis Current Visit: Yes Status: Acute Assessment and Plan: -WBC 5.9, hemodynamically stable, last two temperatures 102.8F and 99.5 -Urinalysis with large blood, RBC present, large leukocyte esterase, WBC TNTC, ketones. -On examination patient does not have CVA tenderness/ negative lloyds punch -antibiotics as above (3) SHAWNA (acute kidney injury) Current Visit: Yes Status: Acute Assessment and Plan: Likely prerenal in the setting of sepsis and pyelonephritis. Creatinine at admi ssion 1.41 -baseline creatinine 1.1. Currently 1.28 -continue IV fluids -continue monitor serum creatinine -continue monitor I&O -continue renal protective strategy including renal dosed medications and avoid nephrotoxic agents (4) Hyponatremia Current Visit: Yes Status: Acute Assessment and Plan: Likely due to poor oral intake. Sodium 130 on admission. currently 133. -continue IV fluids and monitor (5) Serum phosphorus decreased Current Visit: Yes Status: Acute Assessment and Plan: Likely due to poor oral intake, currently 2.0 -will continue to supplement phosphorus and recheck (6) Diabetes mellitus Current Visit: Yes Status: Acute Assessment and Plan: Glucose currently 183. -Continue medium dose sliding scale insulin -Continue diabetic diet -Continue blood glucose checks (7) Hypothyroidism Current Visit: Yes Status: Acute Assessment and Plan: Hypothyroidism. Continue at home levothyroxine DVT Prophylaxis: SQ heparin - Summary of Assessment and Plan Summary of Assessment and Plan: As above - Time Spent with Patient Total time spent is greater than 50% in coordination of care (as documented) at patient's floor/unit and/or counseling patient: 25 - 35 minutes Internal Medicine: Result - Labs CBC & Chem 7: 03/26/19 00:29 03/26/19 00:29 Labs: Short CBC 03/25/19 03/26/19 Range/Units 20:05 00:29 WBC 7.1 5.9 (4.3-11.1) K/mcL Hgb 12.8 L 11.0 L D (12.9-16.9) g/dL Hct 38.3 33.1 L (37.5-50.1) % Plt Count 92 L 89 L (140-400) K/mcL Neutrophils # 5.9 4.7 (1.6-8.9) K/mcL BMP 03/25/19 03/26/19 20:05 00:29 Sodium 130 L 133 L Potassium 3.7 3.4 L Chloride 96 L 102 Carbon Dioxide 24 22 L BUN 20 19 Creatinine 1.41 H 1.28 Glucose 361 H 183 H Calcium 8.4 L 7.7 L Cardiac Enzymes 03/25/19 Range/Units 20:05 Troponin I < 0.03 (< 0.04) ng/mL Urine 03/25/19 Range/Units 20:46 Urine Color Yellow (Yellow) Urine Clarity Turbid A (Clear) Urine pH 7.0 (5.0-8.0) pH Units Ur Specific [place] 1.022 (1.010-1.025) Urine Protein 100 H (Neg-Trace) mg/dL Urine Glucose (UA) 500 H (Normal) mg/dL - Impressions Impressions Chest X-Ray 03/25/19 20:25 IMPRESSION: Mild central congestion with cardiomegaly. D/ / Michael Sutherland / Michael Sutherland Interpreting Provider: Michael Sutherland Consult Discharge Plan - Plan Referrals: NONE,PCP [Primary Care Provider] - <Edil Tillman - Last Filed: 03/26/19 18:34> Hospitalist Progress Note - Encounter Date of Encounter: 03/26/19 - Exam Vitals: Temp Pulse Resp BP Pulse Ox 99.5 F 73 16 152/71 95 03/26/19 16:24 03/26/19 16:24 03/26/19 16:24 03/26/19 16:24 03/26/19 16:24 - Assessment and Plan (1) Sepsis Current Visit: Yes Status: Acute (2) UTI (urinary tract infection) Current Visit: Yes Status: Acute (3) Pyelonephritis Current Visit: Yes Status: Acute (4) SHAWNA (acute kidney injury) Current Visit: Yes Status: Acute (5) Serum phosphorus decreased Current Visit: Yes Status: Acute (6) DVT prophylaxis Current Visit: Yes Status: Acute (7) Hyponatremia Current Visit: Yes Status: Acute (8) Diabetes mellitus Current Visit: Yes Status: Acute (9) Hypothyroidism Current Visit: Yes Status: Acute (10) Weakness Current Visit: Yes Status: Acute - Time Spent with Patient Total time spent is greater than 50% in coordination of care (as documented) at patient's floor/unit and/or counseling patient: Internal Medicine: Result - Labs CBC & Chem 7: 03/26/19 00:29 03/26/19 00:29 Labs: Short CBC 03/25/19 03/26/19 Range/Units 20:05 00:29 WBC 7.1 5.9 (4.3-11.1) K/mcL Hgb 12.8 L 11.0 L D (12.9-16.9) g/dL Hct 38.3 33.1 L (37.5-50.1) % Plt Count 92 L 89 L (140-400) K/mcL Neutrophils # 5.9 4.7 (1.6-8.9) K/mcL BMP 03/25/19 03/26/19 20:05 00:29 Sodium 130 L 133 L Potassium 3.7 3.4 L Chloride 96 L 102 Carbon Dioxide 24 22 L BUN 20 19 Creatinine 1.41 H 1.28 Glucose 361 H 183 H Calcium 8.4 L 7.7 L Cardiac Enzymes 03/25/19 Range/Units 20:05 Troponin I < 0.03 (< 0.04) ng/mL Urine 03/25/19 Range/Units 20:46 Urine Color Yellow (Yellow) Urine Clarity Turbid A (Clear) Urine pH 7.0 (5.0-8.0) pH Units Ur Specific [place] 1.022 (1.010-1.025) Urine Protein 100 H (Neg-Trace) mg/dL Urine Glucose (UA) 500 H (Normal) mg/dL - Impressions Impressions Chest X-Ray 03/25/19 20:25 IMPRESSION: Mild central congestion with cardiomegaly. D/ / Michael Sutehrland / Michael Sutherland Interpreting Provider: Michael Sutherland - Attending Attestation I saw evaluated and examined this patient and reviewed objective data including labs and my medical decision-making was reviewed with the Resident Physician/Medical Student. I agree with the documented findings, disposition and treatment plan as described except to any changes set forth below. We independently had [id number] contact with the patient. <Sergio Evans - Last Filed: 03/26/19 11:50> (6) Diabetes mellitus Qualifiers: Diabetes mellitus type: type 2 Diabetes mellitus group home insulin use: without group home use (7) Hypothyroidism Qualifiers: Hypothyroidism type: unspecified Qualified Code(s): E03.9 - Hypothyroidism, unspecified <Edil Tillman - Last Filed: 03/26/19 18:34> (1) Sepsis Qualifiers: Sepsis type: sepsis due to unspecified organism Sepsis acute organ dysfunction status: without acute organ dysfunction Qualified Code(s): A41.9 - Sepsis, unspecified organism (2) UTI (urinary tract infection) Qualifiers: Urinary tract infection type: acute cystitis Hematuria presence: without hematuria Qualified Code(s): N30.00 - Acute cystitis without hematuria (8) Diabetes mellitus Qualifiers: Diabetes mellitus type: type 2 Diabetes mellitus group home insulin use: without group home use (9) Hypothyroidism Qualifiers: Hypothyroidism type: unspecified Qualified Code(s): E03.9 - Hypothyroidism, unspecified
[2019-03-26] MEDS ORDERED: 0.9 % Sodium Chloride 1,000 ML IVC SCH (14:45)
--- NOTE | 2019-03-26 15:11 | Electrocardiograph Report ---
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
[2019-03-26] MEDS: Ondansetron ODT 4 MG TAB.RAPDIS SL PRN (18:00)
[2019-03-26] MEDS: Aspirin Enteric Coated 81 MG Tablet PO SCH (20:26)
[2019-03-27 04:58] LABS: Immature Granulocytes % 0.3 % (0-4)
[2019-03-27 05:00] LABS: Basophils % 0.3 %; Eosinophils % 0.4 %; Hematocrit 36.6 % (37.5-50.1); Hemoglobin 12.1 g/dL (12.9-16.9); Immature Platelets 4.5 % (1.1-6.1); Lymphocytes # 0.4 K/mcL (0.6-4.6); Mean Corpuscular HGB Conc 33.1 g/dL (31.6-35.5); Mean Corpuscular Hemoglobin 29.5 pg (28.0-33.3); Mean Corpuscular Volume 89.3 fL (83.0-100.0); Mean Platelet Volume 11.5 fL (9.4-12.4); Monocytes # 0.8 K/mcL (0.0-1.3); Monocytes % 10.9 %; Red Cell Distribution Width 15.5 % (11.5-14.5); Segmented Neutrophils % 82.1 %; White Blood Count 7.3 K/mcL (4.3-11.1)
[2019-03-27 05:16] LABS: BUN/Creatinine Ratio 13 (6-26); Blood Urea Nitrogen 17 mg/dL (8-23); Calcium 8.3 mg/dL (8.6-10.3); Carbon Dioxide 23 mEq/L (23-29); Chloride 99 mEq/L (98-107); Glucose 154 mg/dL (70-105); Osmolality,Calculated 279 (280-300); Platelet Count 86 K/mcL (140-400); Potassium 3.7 mEq/L (3.5-5.1); Sodium 132 mEq/L (136-145); eGFR For African Americans > 60 (> 60); eGFR For Non-African Americans 55 (> 60)
[2019-03-27] MEDS: *HR* Heparin 5,000 UNIT/ML VIAL SQ SCH ×3 (05:30→21:41)
[2019-03-27] MEDS ORDERED: Triamcinolone Acet 0.1% CRM 1 APPL GRAM TP PRN (08:10)
[2019-03-27] MEDS ORDERED: Fluticasone Propionate Nasal 50 MCG/SPRAY BOTTLE NS PRN (08:10)
--- NOTE | 2019-03-27 08:37 | Internal Med Progress Note ---
<EvansSergio E - Last Filed: 03/27/19 14:15> Hospitalist Progress Note - Encounter Date of Encounter: 03/27/19 Time of Encounter: 08:15 - Subjective Interval History: Mr. Bassett is a 78 YOM examined today sitting on his bedside. He states his pain in his back/ LLQ is improved slightly from yesterday. He states when he urinates it is even more painful today than previously. He states his urine is darker than it was yesterday (03/26). Patient asked about what I thought about getting a carmichael catheter and stated that he was on board for it. Patient would like Dr. Gilliland on board for his treatment. Patient also complaining of coughing up mucus and allergies. He says this the normal for him and that he takes zyrtec at home and asked if he would be able to receive that here. - Exam Vitals: Temp Pulse Resp BP Pulse Ox 99.3 F 83 18 123/63 94 03/27/19 07:46 03/27/19 07:46 03/27/19 07:46 03/27/19 07:46 03/27/19 07:46 Exam: General: AOx3. No acute distress. pleasant Head: Normocephalic, atraumatic Eyes: PERRLA, EOMI. ENT: Trachea midline. Sinus drainage present Cardiac: regular rate and rhythm, normal S1 S2 auscultated, no S3 or S4 auscultated. no rubs, gallops, murmurs. Pulmonary: CTA bilaterally, equal chest rise and fall, no rhonchi, rales, wheezing Abdomen: soft, non-distended, normal bowel sounds x4. Back: Nontender throughout, no CVA tenderness, negative lloyds punch. Extremities: Pulses equal bilaterally, moving spontaneously, no edema Neuro: alert and oriented x3. Cranial nerves grossly intact. No focal deficits Psych: Appropriate mood and behavior - Assessment and Plan (1) Severe sepsis Current Visit: Yes Status: Acute Assessment and Plan: Patient meets severe sepsis criteria with fever, tachycardia, tachypnea, lactic acid 3.9 -lactic acid 3.9 on admission, currently 1.8 -WBC 7.3, hemodynamically stable -Urinalysis with large blood, RBC present, large leukocyte esterase, WBC TNTC, ketones. -continue IVF -Chest x-ray showing mild central congestion with cardiomegaly no acute process. -continue ceftriaxone and await urine culture results -urine culture final results Pending, so far Gram Positive Cocci and Proteus vulgaris (resistant to ampicillin, cefazolin, nitrofurantoin) -blood culture pending (2) Pyelonephritis Current Visit: Yes Status: Acute Assessment and Plan: -WBC 7.3, hemodynamically stable, last two temperatures 99.7F and 99.3 -Urinalysis with large blood, RBC present, large leukocyte esterase, WBC TNTC, ketones. -On examination patient does not have CVA tenderness/ negative lloyds punch -Urine culture has grown GPC and GNRs so far. -antibiotics as above (3) SHAWNA (acute kidney injury) Current Visit: Yes Status: Acute Assessment and Plan: Likely prerenal in the setting of sepsis and pyelonephritis. Creatinine at admission 1.41 -baseline creatinine 1.1. Currently 1.27 -continue IV fluids -continue monitor serum creatinine -continue monitor I&O -continue renal protective strategy including renal dosed medications and avoid nephrotoxic agents (4) Hyponatremia Current Visit: Yes Status: Acute Assessment and Plan: Likely due to poor oral intake. Sodium 130 on admission. currently 132. -continue IV fluids and monitor (5) Serum phosphorus decreased Current Visit: Yes Status: Acute Assessment and Plan: Likely due to poor oral intake, currently 2.0 -will continue to supplement phosphorus and recheck (6) Diabetes mellitus Current Visit: Yes Status: Acute Assessment and Plan: Glucose currently 154. -Continue medium dose sliding scale insulin -Continue diabetic diet -Continue blood glucose check (7) Hypothyroidism Current Visit: Yes Status: Acute Assessment and Plan: Hypothyroidism. Continue at home levothyroxine DVT Prophylaxis: SQ heparin - Summary of Assessment and Plan Summary of Assessment and Plan: As above - Time Spent with Patient Total time spent is greater than 50% in coordination of care (as documented) at patient's floor/unit and/or counseling patient: Internal Medicine: Result - Labs CBC & Chem 7: 03/27/19 04:22 03/27/19 04:22 Labs: Short CBC 03/27/19 Range/Units 04:22 WBC 7.3 (4.3-11.1) K/mcL Hgb 12.1 L (12.9-16.9) g/dL Hct 36.6 L (37.5-50.1) % Plt Count 86 L (140-400) K/mcL Neutrophils # 6.0 (1.6-8.9) K/mcL BMP 03/27/19 04:22 Sodium 132 L Potassium 3.7 Chloride 99 Carbon Dioxide 23 BUN 17 Creatinine 1.27 Glucose 154 H Calcium 8.3 L - Impressions Impressions Retroperitoneum Ultrasound 03/26/19 19:00 IMPRESSION: Unremarkable ultrasound of the kidneys. Significant postvoid residual with bladder trabeculations and a bladder diverticulum. Enlarged prostate gland. D/ / Flavoi Cameron MD / Flavio Cameron MD Interpreting Provider: Flavio Cameron MD Consult Discharge Plan - Plan Referrals: Iban Ramírez MD [Partnered Physician] - <Edil Tillman - Last Filed: 03/27/19 18:20> Hospitalist Progress Note - Encounter Date of Encounter: 03/27/19 - Exam Vitals: Temp Pulse Resp BP Pulse Ox 98.1 F 71 16 132/69 94 03/27/19 15:04 03/27/19 15:04 03/27/19 15:04 03/27/19 15:04 03/27/19 15:04 - Assessment and Plan (1) Sepsis Current Visit: Yes Status: Acute (2) UTI (urinary tract infection) Current Visit: Yes Status: Acute (3) Pyelonephritis Current Visit: Yes Status: Acute (4) SHAWNA (acute kidney injury) Current Visit: Yes Status: Acute (5) Serum phosphorus decreased Current Visit: Yes Status: Acute (6) DVT prophylaxis Current Visit: Yes Status: Acute (7) Hyponatremia Current Visit: Yes Status: Acute (8) Diabetes mellitus Current Visit: Yes Status: Acute (9) Hypothyroidism Current Visit: Yes Status: Acute (10) Weakness Current Visit: Yes Status: Acute - Time Spent with Patient Total time spent is greater than 50% in coordination of care (as documented) at patient's floor/unit and/or counseling patient: Internal Medicine: Result - Labs CBC & Chem 7: 03/27/19 04:22 03/27/19 04:22 Labs: Short CBC 03/27/19 Range/Units 04:22 WBC 7.3 (4.3-11.1) K/mcL Hgb 12.1 L (12.9-16.9) g/dL Hct 36.6 L (37.5-50.1) % Plt Count 86 L (140-400) K/mcL Neutrophils # 6.0 (1.6-8.9) K/mcL BMP 03/27/19 04:22 Sodium 132 L Potassium 3.7 Chloride 99 Carbon Dioxide 23 BUN 17 Creatinine 1.27 Glucose 154 H Calcium 8.3 L - Impressions Impressions Retroperitoneum Ultrasound 03/26/19 19:00 IMPRESSION: Unremarkable ultrasound of the kidneys. Significant postvoid residual with bladder trabeculations and a bladder diverticulum. Enlarged prostate gland. D/ / Flavio Cameron MD / Flavio Cameron MD Interpreting Provider: Flavio Cameron MD - Attending Attestation I saw evaluated and examined this patient and reviewed objective data including labs and my medical decision-making was reviewed with the Resident Physician/Medical Student. I agree with the documented findings, disposition and treatment plan as described except to any changes set forth below. We independently had [id number] contact with the patient. No acute events. Patient states he was told he may have a Carmichael catheter placed, but unsure who exactly told this patient about this. He denies fevers/chills. Admits to dysuria. VS: reviewed, afebrile. Labs; Reviewed; renal function improving. Patient is in no acute distress, AAO x3, CVS: RRR, lungs; CTAB. Continue IV Rocphin Follow-up urine cultures Add Flomax today Monitor I/O, if urinary retention, will consult Urology. <Sergio Evans - Last Filed: 03/27/19 14:15> (6) Diabetes mellitus Qualifiers: Diabetes mellitus type: type 2 Diabetes mellitus detention insulin use: without detention use (7) Hypothyroidism Qualifiers: Hypothyroidism type: unspecified Qualified Code(s): E03.9 - Hypothyroidism, unspecified <Edil Tillman - Last Filed: 03/27/19 18:20> (1) Sepsis Qualifiers: Sepsis type: sepsis due to unspecified organism Sepsis acute organ dysfunction status: without acute organ dysfunction Qualified Code(s): A41.9 - Sepsis, unspecified organism (2) UTI (urinary tract infection) Qualifiers: Urinary tract infection type: acute cystitis Hematuria presence: without demetrius turia Qualified Code(s): N30.00 - Acute cystitis without hematuria (8) Diabetes mellitus Qualifiers: Diabetes mellitus type: type 2 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
[2019-03-27] MEDS: Acetaminophen 325 MG TABLET PO PRN (08:53)
[2019-03-27] MEDS: Multivit/Ca/Min/Fe/FA 1 TAB TABLET PO SCH (08:55)
[2019-03-27] MEDS: Insulin LISPRO 300 UNITS/3 ML VIAL SQ SCH ×4 (08:56→21:42)
[2019-03-27] MEDS: cefTRIAXone 2,000 MG in Water for inj. (sterile) 20 ML IVP SCH (08:56)
[2019-03-27] MEDS ORDERED: Loratadine 10 MG TABLET PO SCH (21:00)
[2019-03-27] MEDS: Ondansetron ODT 4 MG TAB.RAPDIS SL PRN (21:03)
[2019-03-27] MEDS: Aspirin Enteric Coated 81 MG Tablet PO SCH (21:40)
[2019-03-27] MEDS: Levalbuterol Neb 1.25 MG/3 ML IH SCH (23:42)
[2019-03-28] MEDS: Levalbuterol Neb 1.25 MG/3 ML IH SCH ×2 (03:37→08:07)
[2019-03-28 04:52] LABS: Eosinophils % 1.3 %; Immature Granulocytes % 0.4 % (0-4); Mean Corpuscular Hemoglobin 29.6 pg (28.0-33.3); Mean Platelet Volume 11.1 fL (9.4-12.4)
[2019-03-28 04:54] LABS: Basophils % 0.2 %; Eosinophils # 0.1 K/mcL (0.0-0.6); Hematocrit 32.8 % (37.5-50.1); Hemoglobin 10.9 g/dL (12.9-16.9); Lymphocytes # 0.9 K/mcL (0.6-4.6); Lymphocytes % 16.6 %; Mean Corpuscular HGB Conc 33.2 g/dL (31.6-35.5); Mean Corpuscular Volume 89.1 fL (83.0-100.0); Monocytes # 0.9 K/mcL (0.0-1.3); Monocytes % 15.9 %; Red Blood Count 3.68 M/mcL (4.19-5.50); Red Cell Distribution Width 15.1 % (11.5-14.5); Segmented Neutrophils % 65.6 %; White Blood Count 5.4 K/mcL (4.3-11.1)
[2019-03-28 04:59] LABS: Neutrophils # 3.5 K/mcL (1.6-8.9); Platelet Count 79 K/mcL (140-400)
[2019-03-28 05:00] LABS: Platelet Estimate Decreased (Normal)
[2019-03-28 05:13] LABS: BUN/Creatinine Ratio 17 (6-26); Blood Urea Nitrogen 20 mg/dL (8-23); Calcium 7.7 mg/dL (8.6-10.3); Carbon Dioxide 23 mEq/L (23-29); Chloride 100 mEq/L (98-107); Glucose 148 mg/dL (70-105); Osmolality,Calculated 279 (280-300); Potassium 3.4 mEq/L (3.5-5.1); Sodium 132 mEq/L (136-145); eGFR For African Americans > 60 (> 60); eGFR For Non-African Americans 58 (> 60)
[2019-03-28] MEDS: *HR* Heparin 5,000 UNIT/ML VIAL SQ SCH (06:59)
[2019-03-28] MEDS: Insulin LISPRO 300 UNITS/3 ML VIAL SQ SCH ×2 (08:24→12:45)
--- NOTE | 2019-03-28 08:27 | Internal Med Progress Note ---
Hospitalist Progress Note - Encounter Date of Encounter: 03/28/19 - Exam Vitals: Temp Pulse Resp BP Pulse Ox 98.9 F 71 16 124/70 93 03/28/19 07:11 03/28/19 07:11 03/28/19 08:08 03/28/19 07:11 03/28/19 08:08 - Assessment and Plan (1) Sepsis Current Visit: Yes Status: Acute (2) UTI (urinary tract infection) Current Visit: Yes Status: Acute (3) Pyelonephritis Current Visit: Yes Status: Acute (4) SHAWNA (acute kidney injury) Current Visit: Yes Status: Acute (5) Serum phosphorus decreased Current Visit: Yes Status: Acute (6) DVT prophylaxis Current Visit: Yes Status: Acute (7) Hyponatremia Current Visit: Yes Status: Acute (8) Diabetes mellitus Current Visit: Yes Status: Acute (9) Hypothyroidism Current Visit: Yes Status: Acute (10) Weakness Current Visit: Yes Status: Acute - Time Spent with Patient Total time spent is greater than 50% in coordination of care (as documented) at patient's floor/unit and/or counseling patient: Internal Medicine: Result - Labs CBC & Chem 7: 03/28/19 04:23 03/28/19 04:23 Labs: Short CBC 03/28/19 Range/Units 04:23 WBC 5.4 (4.3-11.1) K/mcL Hgb 10.9 L (12.9-16.9) g/dL Hct 32.8 L (37.5-50.1) % Plt Count 79 L (140-400) K/mcL Neutrophils # 3.5 (1.6-8.9) K/mcL BMP 03/28/19 04:23 Sodium 132 L Potassium 3.4 L Chloride 100 Carbon Dioxide 23 BUN 20 Creatinine 1.20 Glucose 148 H Calcium 7.7 L Consult Discharge Plan - Plan Referrals: Iban Ramírez MD [Partnered Physician] - (1) Sepsis Qualifiers: Sepsis type: sepsis due to unspecified organism Sepsis acute organ dysfunction status: without acute organ dysfunction Qualified Code(s): A41.9 - Sepsis, unspecified organism (2) UTI (urinary tract infection) Qualifiers: Urinary tract infection type: acute cystitis Hematuria presence: without hematuria Qualified Code(s): N30.00 - Acute cystitis without hematuria (8) Diabetes mellitus Qualifiers: Diabetes mellitus type: type 2 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
[2019-03-28] MEDS: Multivit/Ca/Min/Fe/FA 1 TAB TABLET PO SCH (08:33)
[2019-03-28] MEDS: cefTRIAXone 2,000 MG in Water for inj. (sterile) 20 ML IVP SCH (08:33)
--- NOTE | 2019-03-28 10:13 | Discharge Summary ---
- NOTES TO OUTPATIENT PROVIDER Notes to Outpatient Provider: * Repeat CBC in 2 days to monitor platelets, discussed with Heme/Onc, likely will improve in few days post sepsis. HOLD aspirin for one week or until cleared by primary care physician. * Follow-up with Urology in 1-2 weeks. Discuss if Flomax should be continued. Orders not resulted at time of discharge: Pending orders 03/25/19 20:47 Culture,Blood [BC] Stat Date of Encounter: 03/28/19 Time of Encounter: 10:05 - Discharge Diagnosis (1) Sepsis Priority: Primary Status: Acute Qualifiers: Sepsis type: sepsis due to unspecified organism Sepsis acute organ dysfunction status: without acute organ dysfunction Qualified Code(s): A41.9 - Sepsis, unspecified organism (2) UTI (urinary tract infection) Priority: Secondary Status: Acute Qualifiers: Urinary tract infection type: acute cystitis Hematuria presence: without hematuria Qualified Code(s): N30.00 - Acute cystitis without hematuria (3) Pyelonephritis Priority: Secondary Status: Acute (4) SHAWNA (acute kidney injury) Priority: Secondary Status: Acute (5) Serum phosphorus decreased Priority: Secondary Status: Acute (6) DVT prophylaxis Priority: Secondary Status: Acute (7) Hyponatremia Priority: Secondary Status: Acute (8) Diabetes mellitus Priority: Secondary Status: Acute Qualifiers: Diabetes mellitus type: type 2 Diabetes mellitus retirement insulin use: without retirement use Diabetes mellitus complication status: without complication Qualified Code(s): E11.9 - Type 2 diabetes mellitus without complications (9) Hypothyroidism Priority: Secondary Status: Acute Qualifiers: Hypothyroidism type: unspecified Qualified Code(s): E03.9 - Hypothyroidism, unspecified (10) Weakness Priority: Secondary Status: Acute Hospital course: Mr. Bassett is a 78 year old male with a past medical history of diabetes, hypothyroidism, BPH who presented to [facility] complaining of weakness. He stated that the past 3 days he has had lower back ache along with foul-smelling urine, increased urinary frequency, darker urine. Additionally, he has had chills, decreased appetite with poor oral intake, nausea. He denied fever, dysuria, hematuria, chest pain, shortness of breath, abdominal pain, diarrhea. He reports having UTIs in the past with the most recent 1 year ago and he believes this feels similar to past UTIs. Over the past few days he feels he has become weaker and today he had difficulty standing from his recliner so he decided to come to ED to be evaluated. He denies urinary catheterization or recent urological procedure. He has history of BPH having undergone TURBT procedure 5 years ago by the urologist Dr. Gilliland. Since then he no longer has difficulty urinating. He denies smoking, alcohol, drug use. He has family history of father having [place]. He is a full code. In the ED he was given ceftriaxone, Tylenol, 3L IVF. Urine and blood cultures were ordered. -Initial vitals were 101.1F, HR 90, RR 20, BP 142/54, SpO2 96% on room air. WBC 7.1, sodium 130, creatinine 1.41, lactic acid 3.9, phosphorus 1.7, magnesium 1.7, troponin <0.03. Urinalysis with large blood, RBC present, large leukocyte esterase, WBC TNTC, ketones. Chest x-ray showing mild central congestion with cardiomegaly no acute process. HOSPITAL COURSE: admitted for treatment of sepsis. Hemodynamically patient improved and sepsis resolved on Rocephin. Blood cultures have been negative. He low platelets of 79k-92k, I discussed findings with Heme/Onc and reviewed, and stated that this is likely from the sepsis and anticipate resolving in a few days. Aspirin should be held in that time until cleared by PCP. No signs of bleeding. Repeat CBC in 2-3 days. Urine cultures positive for Proteus and Enterococcus Faecalis. Based on sensitivities he was discharged on Augmentin. - Time Spent with Patient Total time spent providing and/or coordinating discharge services: - Discharge Medications Prescriptions: New Tamsulosin [Flomax] 0.4 mg PO DAILY #30 capsule Amoxicillin/Clavulanate [Augmentin] 875 mg PO BIDWM #20 tablet Continued Triamcinolone Acet 0.1% CRM [Kenalog] 1 appl TP DAILY PRN PRN Reason: See Comments Simvastatin [Zocor] 20 mg PO HS Levothyroxine [Synthroid] 125 mcg PO 0630 Triamterene/Hydrochlorothiazid [Triamterene-Hctz 75-50 mg Tab] 0.5 tab PO MOWEFR Sitagliptin Phos/Metformin HCl [Janumet 50-1,000 mg Tablet] 1 each PO BIDWM Potassium Chloride [Klor-Con 10] 20 meq PO DAILY Multivitamin with Minerals/Lut [Cerovite Senior Tablet] 1 each PO DAILY Glimepiride [Amaryl] 4 mg PO QAM Fluticasone Propionate Nasal [Flonase] 50 mcg NS DAILY PRN PRN Reason: Nasal Congestion Cetirizine HCl [Zyrtec] 10 mg PO HS Calcium Carbonate [Calcium] 500 mg PO BID Betamethasone Valerate 60 ml TP BID Ergocalciferol (VITAMIN D2) [Vitamin D2] 50,000 unit PO Q30D Discontinued Aspirin [Lo-Dose Aspirin EC] 81 mg PO HS Home Medications: Betamethasone Valerate 60 ml TP BID 03/25/19 [History] Calcium Carbonate [Calcium] 500 mg PO BID 03/25/19 [History] Cetirizine HCl [Zyrtec] 10 mg PO HS 03/25/19 [History] Ergocalciferol (VITAMIN D2) [Vitamin D2] 50,000 unit PO Q30D 03/25/19 [History] Fluticasone Propionate Nasal [Flonase] 50 mcg NS DAILY PRN 03/25/19 [History] Glimepiride [Amaryl] 4 mg PO QAM 03/25/19 [History] Levothyroxine [Synthroid] 125 mcg PO 0630 03/25/19 [History] Multivitamin with Minerals/Lut [Cerovite Senior Tablet] 1 each PO DAILY 03/25/19 [History] Potassium Chloride [Klor-Con 10] 20 meq PO DAILY 03/25/19 [History] Simvastatin [Zocor] 20 mg PO HS 03/25/19 [History] Sitagliptin Phos/Metformin HCl [Janumet 50-1,000 mg Tablet] 1 each PO BIDWM 03/25/19 [History] Triamcinolone Acet 0.1% CRM [Kenalog] 1 appl TP DAILY PRN 03/25/19 [History] Triamterene/Hydrochlorothiazid [Triamterene-Hctz 75-50 mg Tab] 0.5 tab PO MOWEFR 03/25/19 [History] Amoxicillin/Clavulanate [Augmentin] 875 mg PO BIDWM #20 tablet 03/28/19 [Rx] Tamsulosin [Flomax] 0.4 mg PO DAILY #30 capsule 03/28/19 [Rx] Allergies/Adverse Reactions: Allergy/AdvReac Type Severity Reaction Status Date / Time oxycodone AdvReac Rash Verified 03/25/19 20:05 Date of admission: 03/27/19 18:38 Primary care physician: PCP NONE Consults: 03/27/19 22:30 Consult to Respiratory Therapy [CONS] Routine Reason for Consult: Adding Xopenex breathing txs Call Completed: Yes 03/28/19 09:37 Consult to Occupational Therapy [CONS] Routine Comment: Evaluate, develop and implement POC Reason for Consult: Evaluate, develop and implement POC Does patient have active BEDREST order?: No Is patient medically & hemodynamically stable?: Yes Consult to Physical Therapy [CONS] Routine Comment: Evaluate, develop and implement POC Reason for Consult: Disposition planning. Therapy - weakness in bed. Does patient have active BEDREST order?: No Is patient medically & hemodynamically stable?: Yes Discharging clinician: Edil Tillman - Constitutional Vitals: Temp Pulse Resp BP Pulse Ox 98.9 F 71 16 124/70 93 03/28/19 07:11 03/28/19 07:11 03/28/19 08:08 03/28/19 07:11 03/28/19 08:08 Exam: General: AOx3. No acute distress. pleasant Head: Normocephalic, atraumatic Eyes: PERRLA, EOMI. ENT: Trachea midline. Sinus drainage present Cardiac: regular rate and rhythm, normal S1 S2 auscultated, no S3 or S4 auscultated. no rubs, gallops, murmurs. Pulmonary: CTA bilaterally, equal chest rise and fall, no rhonchi, rales, wheezing Abdomen: soft, non-distended, normal bowel sounds x4. Back: Nontender throughout, no CVA tenderness, negative lloyds punch. Extremities: Pulses equal bilaterally, moving spontaneously, no edema Neuro: alert and oriented x3. Cranial nerves grossly intact. No focal deficits Psych: Appropriate mood and behavior - Patient Status Disposition: Home, Self-Care Condition: Fair Functional capacity at discharge: independent ambulation Overall status at discharge: patient is back to baseline - Ambulatory Orders Ambulatory Orders: Complete Blood Count [HEME] Time Frame: 2 Days, Facility: [facility], Location: Lab - Discharge Instructions Follow Up With: Iban Ramírez MD [Partnered Physician] - - Diet and Activity Activity: increase activity as tolerated Diet: advance to your usual diet
[2019-03-28 10:58] VITALS: BP 127/72
--- NOTE | 2019-03-28 11:39 | Physician Discharge Referral ---
Home Health/Hosp Referral Info Transfer to: Home Health Provider in Charge Post Discharge: PCP - Diagnosis (1) Sepsis Priority: Primary Status: Acute (2) UTI (urinary tract infection) Priority: Secondary Status: Acute (3) Pyelonephritis Priority: Secondary Status: Acute (4) SHAWNA (acute kidney injury) Priority: Secondary Status: Acute (5) Serum phosphorus decreased Priority: Secondary Status: Acute (6) DVT prophylaxis Priority: Secondary Status: Acute (7) Hyponatremia Priority: Secondary Status: Acute (8) Diabetes mellitus Priority: Secondary Status: Acute (9) Hypothyroidism Priority: Secondary Status: Acute (10) Weakness Priority: Secondary Status: Acute - Respiratory Orders Smoking Cessation: Smoking cessation has been advised. For more information, call the [place] Tobacco Quit Line at 3-395-UADW-NOW. - Transfer Medications Prescriptions: Amoxicillin/Clavulanate [Augmentin] 875 mg PO BIDWM #20 tablet Tamsulosin [Flomax] 0.4 mg PO DAILY #30 capsule Home Medications: Betamethasone Valerate 60 ml TP BID 03/25/19 [History] Calcium Carbonate [Calcium] 500 mg PO BID 03/25/19 [History] Cetirizine HCl [Zyrtec] 10 mg PO HS 03/25/19 [History] Ergocalciferol (VITAMIN D2) [Vitamin D2] 50,000 unit PO Q30D 03/25/19 [History] Fluticasone Propionate Nasal [Flonase] 50 mcg NS DAILY PRN 03/25/19 [History] Glimepiride [Amaryl] 4 mg PO QAM 03/25/19 [History] Levothyroxine [Synthroid] 125 mcg PO 0630 03/25/19 [History] Multivitamin with Minerals/Lut [Cerovite Senior Tablet] 1 each PO DAILY 03/25/19 [History] Potassium Chloride [Klor-Con 10] 20 meq PO DAILY 03/25/19 [History] Simvastatin [Zocor] 20 mg PO HS 03/25/19 [History] Sitagliptin Phos/Metformin HCl [Janumet 50-1,000 mg Tablet] 1 each PO BIDWM 03/25/19 [History] Triamcinolone Acet 0.1% CRM [Kenalog] 1 appl TP DAILY PRN 03/25/19 [History] Triamterene/Hydrochlorothiazid [Triamterene-Hctz 75-50 mg Tab] 0.5 tab PO MOWEFR 03/25/19 [History] Amoxicillin/Clavulanate [Augmentin] 875 mg PO BIDWM #20 tablet 03/28/19 [Rx] Tamsulosin [Flomax] 0.4 mg PO DAILY #30 capsule 03/28/19 [Rx] Allergies/Adverse Reactions: Allergy/AdvReac Type Severity Reaction Status Date / Time oxycodone AdvReac Rash Verified 03/25/19 20:05 Certification: Further, I certify that my clinical findings support that this patient is homebound (i.e. absences from home require considerable and taxing effort and are for medical reasons or yazidism services or infrequently or short duration when for other reasons) because: Homebound Reason: Patient requires assistance of a person or device to safely leave home Attestation: My signature below is to certify that this patient is under my care and that I, or nurse practitioner, or a physician's portfolio assistant working with me, has a [id number] encounter with this patient.
== END 2019-03-28 14:37 | disposition home health service (06) | DRG 872 ==
LOC: 3ANU 20:02 → EMEROOARM 20:02 → SUATTDRO 22:35 → 3ANU 23:15
PROVIDERS: ADMIT Internal Medicine; ATTEND Student in an Organized Health Care Education/Training Program

== ENCOUNTER 2019-05-10 08:41 | Inpatient (IN) ==
[2019-05-10] MEDS ORDERED: Ondansetron 4 MG/2 ML VIAL ONE ×2 (11:43→20:10)
[2019-05-10] MEDS ORDERED: Ondansetron 4 MG/2 ML VIAL IVP ONE (11:45)
[2019-05-10] MEDS: Ondansetron 4 MG/2 ML VIAL IVP PRN (20:08)
[2019-05-10] MEDS ORDERED: *HR* HYDROcodone/Acet 5/325 mg TABLET ONE (20:10)
[2019-05-10] MEDS ORDERED: *HR* HYDROcodone/Acet 5/325 mg TABLET PO PRN ×2 (21:39→21:41)
[2019-05-10] MEDS ORDERED: Ketorolac 15 MG/ML VIAL IVP PRN (21:40)
[2019-05-10] MEDS ORDERED: Acetaminophen 325 MG TABLET PO PRN (21:41)
[2019-05-10] MEDS ORDERED: MOM Conc 10 ML UD.LIQ PO PRN (21:42)
[2019-05-10] MEDS ORDERED: Mag Hydrox/Al Hydrox/Simeth 30 ML UDC PO PRN (21:42)
[2019-05-10] MEDS ORDERED: D5% in Water 1,000 ML IVC PRN (21:45)
[2019-05-10] MEDS ORDERED: *HR* Dextrose 50 % in Water (Syg) 50 ML SYRINGE IVP PRN (21:45)
[2019-05-10] MEDS ORDERED: Dextrose Gel 15 GM/37.5 ML TUBE PO PRN ×2 (21:45)
[2019-05-10] MEDS ORDERED: Gadolinium Contrast Agent (WT Based) IV PRN ×2 (22:15→23:24)
[2019-05-10] MEDS: Loratadine 10 MG TABLET PO SCH (23:09)
[2019-05-10] MEDS: Insulin LISPRO 300 UNITS/3 ML VIAL SQ SCH (23:10)
[2019-05-11 00:38] LABS: Bilirubin,Urine Negative (Negative); Blood,Urine Moderate (Negative); Clarity,Urine Turbid (Clear); Color,Urine Yellow (Yellow); Glucose,Urine (UA) 100 mg/dL (Normal); Ketones,Urine Trace mg/dL (Negative); Leukocyte Esterase,Urine Large (Negative); Nitrite,Urine Negative (Negative); Protein,Urine 30 mg/dL (Neg-Trace); Specific Gravity,Urine 1.018 (1.010-1.025); Urobilinogen,Urine Normal (Normal)
[2019-05-11 00:40] LABS: Bacteria,Urine Many per hpf (None-Few); Hyaline Casts,Urine None Seen per lpf (None-Few); Squamous Epithelial Cell,Urine Many per lpf (None-Few); WBC,Urine TNTC per hpf (0-3)
[2019-05-11 01:15] LABS: Activated Partial Thrombo Time 28.7 Seconds (26.0-36.0); INR 1.2; Prothrombin Time 14.1 Seconds (9.4-12.1)
[2019-05-11 01:25] LABS: Basophils % 0.2 %; Eosinophils # 0.1 K/mcL (0.0-0.6); Hematocrit 36.8 % (37.5-50.1); Immature Granulocytes % 0.2 % (0-4); Lymphocytes # 0.6 K/mcL (0.6-4.6); Lymphocytes % 7.3 %; Mean Corpuscular HGB Conc 32.6 g/dL (31.6-35.5); Mean Corpuscular Hemoglobin 29.6 pg (28.0-33.3); Mean Corpuscular Volume 90.9 fL (83.0-100.0); Mean Platelet Volume 9.5 fL (9.4-12.4); Monocytes # 0.9 K/mcL (0.0-1.3); Monocytes % 11.5 %; Neutrophils # 6.4 K/mcL (1.6-8.9); Platelet Count 150 K/mcL (140-400); Red Blood Count 4.05 M/mcL (4.19-5.50); Red Cell Distribution Width 15.4 % (11.5-14.5); Segmented Neutrophils % 79.8 %; White Blood Count 8.1 K/mcL (4.3-11.1)
[2019-05-11 02:31] LABS: BUN/Creatinine Ratio 20 (6-26); Blood Urea Nitrogen 23 mg/dL (8-23); Calcium 8.9 mg/dL (8.6-10.3); Carbon Dioxide 23 mEq/L (23-29); Chloride 99 mEq/L (98-107); Glucose 189 mg/dL (70-105); Osmolality,Calculated 287 (280-300); Sodium 134 mEq/L (136-145); eGFR For African Americans > 60 (> 60); eGFR For Non-African Americans > 60 (> 60)
[2019-05-11 02:32] LABS: Lipase 83 Units/L (11-82); Magnesium 1.7 mg/dL (1.6-2.6)
[2019-05-11 02:33] LABS: Troponin I < 0.03 ng/mL (< 0.04)
[2019-05-11] MEDS: Insulin LISPRO 300 UNITS/3 ML VIAL SQ SCH ×4 (09:09→20:34)
[2019-05-11] MEDS: Ampicillin 1,000 MG in 0.9 % Sodium Chloride Mini Bag 100 ML IVPB SCH ×2 (18:50→23:23)
[2019-05-11] MEDS: Loratadine 10 MG TABLET PO SCH (20:32)
[2019-05-12 01:06] LABS: Hematocrit 34.9 % (37.5-50.1); Hemoglobin 12.2 g/dL (12.9-16.9); Mean Corpuscular Hemoglobin 30.4 pg (28.0-33.3); Mean Platelet Volume 9.6 fL (9.4-12.4); Platelet Count 120 K/mcL (140-400); Red Blood Count 4.01 M/mcL (4.19-5.50); Red Cell Distribution Width 15.5 % (11.5-14.5); White Blood Count 8.4 K/mcL (4.3-11.1)
[2019-05-12 01:27] LABS: BUN/Creatinine Ratio 19 (6-26); Blood Urea Nitrogen 24 mg/dL (8-23); Calcium 8.1 mg/dL (8.6-10.3); Carbon Dioxide 27 mEq/L (23-29); Chloride 97 mEq/L (98-107); Glucose 176 mg/dL (70-105); Magnesium 1.9 mg/dL (1.6-2.6); Osmolality,Calculated 278 (280-300); Potassium 3.6 mEq/L (3.5-5.1); Sodium 130 mEq/L (136-145); eGFR For African Americans > 60 (> 60); eGFR For Non-African Americans 56 (> 60)
[2019-05-12] MEDS: Ondansetron 4 MG/2 ML VIAL IVP PRN ×2 (02:00→08:01)
[2019-05-12] MEDS: Ampicillin 1,000 MG in 0.9 % Sodium Chloride Mini Bag 100 ML IVPB SCH ×2 (05:00→13:40)
[2019-05-12] MEDS: Insulin LISPRO 300 UNITS/3 ML VIAL SQ SCH ×3 (07:50→17:17)
[2019-05-12] MEDS ORDERED: Bacitracin 50,000 UNIT, Polymyxin B Sulfate 500,000 UNIT, Sodium Chloride IRRigation 1,... IR ONE (18:00)
[2019-05-12] MEDS ORDERED: *HR* Heparin 5,000 UNIT/ML VIAL SQ SCH (18:00)
[2019-05-12] MEDS ORDERED: Lidocaine -MPF 2% 2 ML VIAL ONE (19:05)
[2019-05-12] MEDS ORDERED: *HR* FentaNYL (PF) 100 MCG/2 ML VIAL ONE (19:05)
[2019-05-12] MEDS ORDERED: *HR* Propofol 200 MG/20 ML VIAL IVP ONE (19:05)
[2019-05-12] MEDS ORDERED: Ondansetron 4 MG/2 ML VIAL ONE (19:35)
[2019-05-12] MEDS ORDERED: *HR* Phenylephrine 10 MG/ML VIAL ONE (19:35)
[2019-05-12] MEDS ORDERED: Dexamethasone 4 MG/ML VIAL ONE (19:35)
[2019-05-12] MEDS ORDERED: *HR* PHENYLEPHRINE 1,000 MCG/10 ML SYRINGE IVP ONE (19:35)
[2019-05-12] MEDS ORDERED: Neostigmine Methylsulfate 3 MG/3 ML SYRINGE ONE (19:56)
[2019-05-12] MEDS ORDERED: NON-FORMULARY MEDICATION 1 EACH EACH (Cetirizine Hcl [Zyrtec] 10 MG) PO SCH (21:00)
[2019-05-12] MEDS ORDERED: Acetaminophen 325 MG TABLET PO PRN (21:11)
[2019-05-12] MEDS ORDERED: Fluticasone Propionate Nasal 50 MCG/SPRAY BOTTLE NS PRN (21:11)
[2019-05-12] MEDS ORDERED: Triamcinolone Acet 0.1% CRM 15 GM TUBE TP PRN (21:11)
[2019-05-12] MEDS ORDERED: Naloxone 0.4 MG/ML INJ IVP PRN (21:11)
[2019-05-12] MEDS ORDERED: Ringers Solution, Lactated 1,000 ML IVC SCH (21:11)
[2019-05-12] MEDS: Cholecalciferol (D-3) 1,000 UNIT (25MCG) TABLET PO SCH (21:46)
[2019-05-12] MEDS ORDERED: Vancomycin 1,750 MG in 0.9 % Sodium Chloride 250 ML IVPB SCH (23:00)
[2019-05-13 04:33] LABS: Hematocrit 32.9 % (37.5-50.1); Hemoglobin 11.4 g/dL (12.9-16.9); Mean Corpuscular HGB Conc 34.7 g/dL (31.6-35.5); Mean Corpuscular Hemoglobin 30.1 pg (28.0-33.3); Mean Corpuscular Volume 86.8 fL (83.0-100.0); Mean Platelet Volume 9.3 fL (9.4-12.4); Platelet Count 110 K/mcL (140-400); Red Blood Count 3.79 M/mcL (4.19-5.50); Red Cell Distribution Width 15.9 % (11.5-14.5); White Blood Count 8.9 K/mcL (4.3-11.1)
[2019-05-13 04:41] LABS: BUN/Creatinine Ratio 21 (6-26); Blood Urea Nitrogen 20 mg/dL (8-23); Calcium 7.8 mg/dL (8.6-10.3); Carbon Dioxide 23 mEq/L (23-29); Chloride 100 mEq/L (98-107); Glucose 246 mg/dL (70-105); Osmolality,Calculated 283 (280-300); Potassium 4.3 mEq/L (3.5-5.1); Sodium 131 mEq/L (136-145); eGFR For African Americans > 60 (> 60); eGFR For Non-African Americans > 60 (> 60)
[2019-05-13] MEDS ORDERED: *HR* SitaGLIPtin 25 MG TABLET PO SCH (08:00)
[2019-05-13] MEDS ORDERED: *HR* Metformin 500 MG TABLET PO SCH (08:00)
[2019-05-13] MEDS: Multivit/Ca/Min/Fe/FA 1 TAB TABLET PO SCH (08:11)
[2019-05-13] MEDS ORDERED: *HR* Glimepiride 4 MG TABLET PO SCH (09:00)
[2019-05-13] MEDS: Cholecalciferol (D-3) 1,000 UNIT (25MCG) TABLET PO SCH (09:32)
[2019-05-13] MEDS: Cefepime HCl 2,000 MG in 0.9 % Sodium Chloride Mini Bag 100 ML IVPB SCH (17:18)
[2019-05-13] MEDS: Insulin LISPRO 300 UNITS/3 ML VIAL SQ SCH (17:20)
[2019-05-13] MEDS: Silvasorb 44.4 ML TUBE TP SCH (17:33)
[2019-05-13] MEDS ORDERED: Piperacillin/Tazobactam 3.375 GM in 0.9 % Sodium Chloride Mini Bag 100 ML IVPB SCH (18:00)
[2019-05-13] MEDS ORDERED: Insulin LISPRO 300 UNITS/3 ML VIAL SQ SCH (21:00)
[2019-05-13] MEDS: Loratadine 10 MG TABLET PO SCH (21:55)
[2019-05-14] MEDS: *HR* HYDROcodone/Acet 5/325 mg TABLET PO PRN ×3 (00:31→19:53)
[2019-05-14] MEDS: Cefepime HCl 2,000 MG in 0.9 % Sodium Chloride Mini Bag 100 ML IVPB SCH ×3 (00:33→15:34)
[2019-05-14 06:24] LABS: Hematocrit 33.4 % (37.5-50.1); Hemoglobin 11.4 g/dL (12.9-16.9); Mean Corpuscular HGB Conc 34.1 g/dL (31.6-35.5); Mean Corpuscular Hemoglobin 29.8 pg (28.0-33.3); Mean Corpuscular Volume 87.4 fL (83.0-100.0); Mean Platelet Volume 9.4 fL (9.4-12.4); Platelet Count 143 K/mcL (140-400); Red Blood Count 3.82 M/mcL (4.19-5.50); Red Cell Distribution Width 15.9 % (11.5-14.5); White Blood Count 9.3 K/mcL (4.3-11.1)
[2019-05-14 06:26] LABS: VBG Ionized Calcium 1.11 mmol/L (1.15-1.35)
[2019-05-14 06:43] LABS: BUN/Creatinine Ratio 24 (6-26); Blood Urea Nitrogen 28 mg/dL (8-23); Calcium 8.1 mg/dL (8.6-10.3); Carbon Dioxide 28 mEq/L (23-29); Chloride 98 mEq/L (98-107); Glucose 237 mg/dL (70-105); Osmolality,Calculated 289 (280-300); Potassium 3.8 mEq/L (3.5-5.1); Sodium 133 mEq/L (136-145); eGFR For African Americans > 60 (> 60); eGFR For Non-African Americans 59 (> 60)
[2019-05-14] MEDS: Ondansetron 4 MG/2 ML VIAL IVP PRN (09:01)
[2019-05-14] MEDS: *HR* OxyCODONE Immed Rel 5 MG TABLET PO PRN (09:01)
[2019-05-14] MEDS: Multivit/Ca/Min/Fe/FA 1 TAB TABLET PO SCH (09:01)
[2019-05-14] MEDS: Insulin LISPRO 300 UNITS/3 ML VIAL SQ SCH ×4 (09:06→19:54)
[2019-05-14] MEDS: Cholecalciferol (D-3) 1,000 UNIT (25MCG) TABLET PO SCH (09:12)
[2019-05-14] MEDS ORDERED: *HR* Dextrose 50 % in Water (Syg) 50 ML SYRINGE IVP PRN (09:14)
[2019-05-14] MEDS ORDERED: Dextrose Gel 15 GM/37.5 ML TUBE PO PRN ×2 (09:14)
[2019-05-14] MEDS ORDERED: D5% in Water 1,000 ML IVC PRN (09:14)
[2019-05-14] MEDS ORDERED: Melatonin 3 MG TABLET PO PRN (11:53)
[2019-05-14] MEDS ORDERED: traZODone 50 MG TABLET PO PRN (11:53)
[2019-05-14] MEDS: Silvasorb 44.4 ML TUBE TP SCH (12:17)
[2019-05-14] MEDS: Loratadine 10 MG TABLET PO SCH (19:53)
[2019-05-15 01:56] LABS: Hematocrit 31.3 % (37.5-50.1); Hemoglobin 10.3 g/dL (12.9-16.9); Mean Corpuscular HGB Conc 32.9 g/dL (31.6-35.5); Mean Corpuscular Hemoglobin 29.8 pg (28.0-33.3); Mean Corpuscular Volume 90.5 fL (83.0-100.0); Mean Platelet Volume 9.7 fL (9.4-12.4); Platelet Count 131 K/mcL (140-400); Red Blood Count 3.46 M/mcL (4.19-5.50); Red Cell Distribution Width 15.8 % (11.5-14.5); White Blood Count 6.8 K/mcL (4.3-11.1)
[2019-05-15 02:08] LABS: BUN/Creatinine Ratio 26 (6-26); Blood Urea Nitrogen 26 mg/dL (8-23); Calcium 8.2 mg/dL (8.6-10.3); Carbon Dioxide 26 mEq/L (23-29); Chloride 99 mEq/L (98-107); Glucose 161 mg/dL (70-105); Osmolality,Calculated 282 (280-300); Potassium 3.8 mEq/L (3.5-5.1); Sodium 132 mEq/L (136-145); eGFR For African Americans > 60 (> 60); eGFR For Non-African Americans > 60 (> 60)
[2019-05-15] MEDS: *HR* HYDROcodone/Acet 5/325 mg TABLET PO PRN ×2 (02:24→16:22)
[2019-05-15] MEDS ORDERED: Cefepime HCl 2,000 MG in 0.9 % Sodium Chloride Mini Bag 100 ML IVPB SCH (06:00)
[2019-05-15] MEDS: Insulin LISPRO 300 UNITS/3 ML VIAL SQ SCH ×4 (07:24→20:29)
[2019-05-15] MEDS: Multivit/Ca/Min/Fe/FA 1 TAB TABLET PO SCH (08:55)
[2019-05-15] MEDS: Silvasorb 44.4 ML TUBE TP SCH (08:58)
[2019-05-15] MEDS: Cholecalciferol (D-3) 1,000 UNIT (25MCG) TABLET PO SCH ×2 (09:47→10:12)
[2019-05-15] MEDS: MOM Conc 10 ML UD.LIQ PO PRN ×2 (09:47→20:28)
[2019-05-15] MEDS: Ondansetron 4 MG/2 ML VIAL IVP PRN ×2 (12:15→23:27)
[2019-05-15] MEDS ORDERED: Methocarbamol 500 MG TABLET PO ONE (13:23)
[2019-05-15] MEDS ORDERED: Lidocaine -MPF 1% 5 ML AMPUL INFILT ONE (15:11)
[2019-05-15] MEDS: Cefepime HCl 2,000 MG in Water for inj. (sterile) 20 ML IVP SCH ×2 (16:22→23:36)
[2019-05-15] MEDS: Loratadine 10 MG TABLET PO SCH (20:26)
[2019-05-15] MEDS: *HR* OxyCODONE Immed Rel 5 MG TABLET PO PRN (23:27)
[2019-05-16 03:01] LABS: Basophils % 0.3 %; Immature Granulocytes % 0.8 % (0-4); Platelet Count 121 K/mcL (140-400); Red Cell Distribution Width 15.8 % (11.5-14.5); White Blood Count 7.1 K/mcL (4.3-11.1)
[2019-05-16 03:05] LABS: Eosinophils # 0.2 K/mcL (0.0-0.6); Eosinophils % 2.1 %; Hematocrit 29.1 % (37.5-50.1); Lymphocytes # 0.6 K/mcL (0.6-4.6); Lymphocytes % 8.3 %; Mean Corpuscular HGB Conc 34.4 g/dL (31.6-35.5); Mean Corpuscular Hemoglobin 30.3 pg (28.0-33.3); Mean Corpuscular Volume 88.2 fL (83.0-100.0); Mean Platelet Volume 9.6 fL (9.4-12.4); Monocytes # 0.6 K/mcL (0.0-1.3); Neutrophils # 5.7 K/mcL (1.6-8.9); Segmented Neutrophils % 79.5 %
[2019-05-16 04:02] LABS: BUN/Creatinine Ratio 23 (6-26); Blood Urea Nitrogen 20 mg/dL (8-23); Calcium 8.2 mg/dL (8.6-10.3); Carbon Dioxide 29 mEq/L (23-29); Chloride 98 mEq/L (98-107); Glucose 167 mg/dL (70-105); Osmolality,Calculated 282 (280-300); Potassium 3.6 mEq/L (3.5-5.1); Sodium 133 mEq/L (136-145); eGFR For African Americans > 60 (> 60); eGFR For Non-African Americans > 60 (> 60)
[2019-05-16] MEDS: *HR* HYDROcodone/Acet 5/325 mg TABLET PO PRN (08:12)
[2019-05-16] MEDS: Insulin LISPRO 300 UNITS/3 ML VIAL SQ SCH ×2 (08:12→12:38)
[2019-05-16] MEDS: Multivit/Ca/Min/Fe/FA 1 TAB TABLET PO SCH (08:13)
[2019-05-16] MEDS: Cholecalciferol (D-3) 1,000 UNIT (25MCG) TABLET PO SCH (08:13)
[2019-05-16] MEDS ORDERED: cefTRIAXone 2,000 MG in Water for inj. (sterile) 20 ML IVP SCH ×2 (12:35→18:00)
[2019-05-16] MEDS: Silvasorb 44.4 ML TUBE TP SCH (12:38)
[2019-05-16] MEDS: *HR* OxyCODONE Immed Rel 5 MG TABLET PO PRN (16:26)
[2019-05-16 16:30] VITALS: BP 130/68
[2019-05-16] MEDS ORDERED: Aminoglycoside Consult 1 EACH MC ONE (17:05)
== END 2019-05-16 17:06 | DRG 515 ==
LOC: 3BNU 08:41 → 3NENU 08:41 → EMEROOARM 08:41 → SUATTDRO 12:44 → 3NENU 13:15 → SUATTDRO 05-13 15:58
PROVIDERS: ADMIT Student in an Organized Health Care Education/Training Program; ATTEND Internal Medicine

== ENCOUNTER 2019-07-02 17:30 | Observation (INO) ==
[2019-07-02] MEDS ORDERED: Morphine Sulfate 2 MG/ML SYRINGE ONE (18:02)
[2019-07-02] MEDS ORDERED: Morphine Sulfate 2 MG/ML SYRINGE IVP STA (18:06)
[2019-07-02 18:35] LABS: Basophils % 0.2 %; Eosinophils # 0.1 K/mcL (0.0-0.6); Eosinophils % 1.9 %; Hematocrit 32.5 % (37.5-50.1); Hemoglobin 10.8 g/dL (12.9-16.9); Immature Granulocytes % 0.5 % (0-4); Lymphocytes # 0.7 K/mcL (0.6-4.6); Lymphocytes % 11.7 %; Mean Corpuscular HGB Conc 33.2 g/dL (31.6-35.5); Mean Corpuscular Hemoglobin 29.5 pg (28.0-33.3); Mean Corpuscular Volume 88.8 fL (83.0-100.0); Mean Platelet Volume 9.7 fL (9.4-12.4); Monocytes # 0.7 K/mcL (0.0-1.3); Monocytes % 12.5 %; Neutrophils # 4.3 K/mcL (1.6-8.9); Platelet Count 141 K/mcL (140-400); Red Blood Count 3.66 M/mcL (4.19-5.50); Red Cell Distribution Width 16.4 % (11.5-14.5); Segmented Neutrophils % 73.2 %; White Blood Count 5.9 K/mcL (4.3-11.1)
[2019-07-02 18:36] LABS: INR 1.3; Prothrombin Time 15.3 Seconds (9.4-12.1)
[2019-07-02 18:50] LABS: Alanine Aminotransferase 16 Units/L (7-52); Albumin 2.5 g/dL (3.5-5.7); Albumin/Globulin Ratio 0.7 (1.1-2.2); Alkaline Phosphatase 156 Units/L (34-104); Aspartate Amino Transferase 22 Units/L (13-39); BUN/Creatinine Ratio 18 (6-26); Bilirubin,Total 0.7 mg/dL (0.3-1.0); Blood Urea Nitrogen 34 mg/dL (8-23); Calcium 8.7 mg/dL (8.6-10.3); Carbon Dioxide 24 mEq/L (23-29); Chloride 104 mEq/L (98-107); Ethanol < 10 mg/dL (Less than 10); Globulin 3.6 g/dL (2.4-3.5); Glucose 129 mg/dL (70-105); Osmolality,Calculated 293 (280-300); Potassium 4.1 mEq/L (3.5-5.1); Sodium 137 mEq/L (136-145); Total Protein 6.1 g/dL (6.4-8.9); eGFR For African Americans 42 (> 60); eGFR For Non-African Americans 34 (> 60)
[2019-07-02] MEDS ORDERED: Piperacillin/Tazobactam 3.375 GM in Water for inj. (sterile) 20 ML IVP ONE (19:49)
[2019-07-02] MEDS ORDERED: 0.9 % Sodium Chloride 1,000 ML IV ONE ×2 (19:49→20:28)
[2019-07-02] MEDS ORDERED: Naloxone 0.4 MG/ML INJ IVP PRN (22:50)
[2019-07-02] MEDS ORDERED: 0.9 % Sodium Chloride 1,000 ML IVC SCH (23:00)
[2019-07-02 23:39] LABS: Bilirubin,Urine Negative (Negative); Blood,Urine Large (Negative); Clarity,Urine Turbid (Clear); Color,Urine Yellow (Yellow); Glucose,Urine (UA) Normal (Normal); Ketones,Urine Negative (Negative); Leukocyte Esterase,Urine Large (Negative); Nitrite,Urine Negative (Negative); Protein,Urine 100 mg/dL (Neg-Trace); Specific Gravity,Urine 1.016 (1.010-1.025); Urobilinogen,Urine Normal (Normal)
[2019-07-02 23:43] LABS: Hyaline Casts,Urine None Seen per lpf (None-Few); Squamous Epithelial Cell,Urine Many per lpf (None-Few); WBC,Urine TNTC per hpf (0-3)
[2019-07-02 23:53] LABS: Bacteria,Urine Few per hpf (None-Few); RBC,Urine Present per hpf (0-3); Yeast,Urine Many per hpf (None Seen)
[2019-07-03] MEDS ORDERED: D5% in Water 1,000 ML IVC PRN (00:48)
[2019-07-03] MEDS ORDERED: (Diclofenac Sodium [Voltaren] 1 APPL) TP PRN (00:48)
[2019-07-03] MEDS ORDERED: *HR* Dextrose 50 % in Water (Syg) 50 ML SYRINGE IVP PRN (00:48)
[2019-07-03] MEDS ORDERED: Dextrose Gel 15 GM/37.5 ML TUBE PO PRN ×2 (00:48)
[2019-07-03] MEDS ORDERED: Vancomycin 1,750 MG in 0.9 % Sodium Chloride 250 ML IVPB SCH (01:00)
[2019-07-03] MEDS: Insulin LISPRO 300 UNITS/3 ML VIAL SQ SCH ×4 (01:24→16:35)
[2019-07-03 05:20] LABS: Basophils % 0.4 %; Eosinophils # 0.1 K/mcL (0.0-0.6); Eosinophils % 2.1 %; Hematocrit 28.7 % (37.5-50.1); Hemoglobin 9.5 g/dL (12.9-16.9); Immature Granulocytes % 0.4 % (0-4); Lymphocytes # 0.5 K/mcL (0.6-4.6); Lymphocytes % 10.2 %; Mean Corpuscular HGB Conc 33.1 g/dL (31.6-35.5); Mean Corpuscular Hemoglobin 29.5 pg (28.0-33.3); Mean Corpuscular Volume 89.1 fL (83.0-100.0); Mean Platelet Volume 9.3 fL (9.4-12.4); Monocytes # 0.5 K/mcL (0.0-1.3); Monocytes % 10.8 %; Neutrophils # 3.7 K/mcL (1.6-8.9); Platelet Count 119 K/mcL (140-400); Red Blood Count 3.22 M/mcL (4.19-5.50); Red Cell Distribution Width 16.5 % (11.5-14.5); Segmented Neutrophils % 76.1 %; White Blood Count 4.8 K/mcL (4.3-11.1)
[2019-07-03 05:33] LABS: Albumin/Globulin Ratio 0.6 (1.1-2.2); Bilirubin,Total 0.6 mg/dL (0.3-1.0); Calcium 7.8 mg/dL (8.6-10.3); Globulin 3.1 g/dL (2.4-3.5); Potassium 4.3 mEq/L (3.5-5.1); Total Protein 5.1 g/dL (6.4-8.9)
[2019-07-03] MEDS: *HR* Heparin 5,000 UNIT/ML VIAL SQ SCH ×3 (06:34→20:22)
[2019-07-03] MEDS ORDERED: Piperacillin/Tazobactam 3.375 GM in 0.9 % Sodium Chloride Mini Bag 100 ML IVPB SCH (08:00)
[2019-07-03] MEDS ORDERED: Fluticasone Propionate Nasal 50 MCG/SPRAY BOTTLE NS PRN (09:00)
[2019-07-03] MEDS ORDERED: Doxycycline 100 MG CAPSULE PO SCH (09:00)
[2019-07-03] MEDS: Sennosides/Docusate Sodium TABLET PO SCH (09:22)
[2019-07-03] MEDS: Furosemide 20 MG TABLET PO SCH (09:23)
[2019-07-03] MEDS: Doxycycline 100 MG CAPSULE PO SCH (16:34)
[2019-07-03] MEDS: Loratadine 10 MG TABLET PO SCH (20:22)
[2019-07-03] MEDS: Insulin DETEMIR 100 UNIT/ML X5UNITS SQ SCH (20:25)
[2019-07-03] MEDS ORDERED: Aminoglycoside Consult 1 EACH MC ONE (21:29)
[2019-07-04] MEDS: *HR* HYDROcodone/Acet 5/325 mg TABLET PO PRN ×3 (00:06→22:53)
[2019-07-04] MEDS: Doxycycline 100 MG CAPSULE PO SCH ×2 (05:28→17:07)
[2019-07-04] MEDS: *HR* Heparin 5,000 UNIT/ML VIAL SQ SCH ×3 (05:28→20:47)
[2019-07-04] MEDS: Insulin LISPRO 300 UNITS/3 ML VIAL SQ SCH ×3 (08:41→17:08)
[2019-07-04] MEDS: Sennosides/Docusate Sodium TABLET PO SCH (09:34)
[2019-07-04 10:52] LABS: Calcium 8.2 mg/dL (8.6-10.3); Potassium 4.4 mEq/L (3.5-5.1)
[2019-07-04 11:17] LABS: Hematocrit 35.3 % (37.5-50.1); Mean Corpuscular HGB Conc 31.7 g/dL (31.6-35.5); Mean Corpuscular Hemoglobin 29.4 pg (28.0-33.3); Mean Corpuscular Volume 92.7 fL (83.0-100.0); Mean Platelet Volume 9.9 fL (9.4-12.4); Platelet Count 149 K/mcL (140-400); Red Blood Count 3.81 M/mcL (4.19-5.50); Red Cell Distribution Width 16.9 % (11.5-14.5); White Blood Count 5.5 K/mcL (4.3-11.1)
[2019-07-04 11:43] LABS: Hemoglobin 11.2 g/dL (12.9-16.9)
[2019-07-04] MEDS: Miconazole 2% ointment 141 APPL/141 GM TUBE TP SCH ×2 (12:01→20:48)
[2019-07-04] MEDS: Gabapentin 300 MG CAPSULE PO SCH ×2 (12:01→20:47)
[2019-07-04] MEDS: Loratadine 10 MG TABLET PO SCH (20:47)
[2019-07-04] MEDS: Insulin DETEMIR 100 UNIT/ML X5UNITS SQ SCH (20:48)
[2019-07-05 05:31] LABS: Hematocrit 30.9 % (37.5-50.1); Hemoglobin 10.2 g/dL (12.9-16.9); Mean Corpuscular Hemoglobin 29.4 pg (28.0-33.3); Mean Platelet Volume 9.8 fL (9.4-12.4); Platelet Count 137 K/mcL (140-400); Red Blood Count 3.47 M/mcL (4.19-5.50); Red Cell Distribution Width 16.7 % (11.5-14.5); White Blood Count 4.2 K/mcL (4.3-11.1)
[2019-07-05] MEDS ORDERED: *HR* HYDROcodone/Acet 7.5/325 mg TABLET PO ONE (05:52)
[2019-07-05 05:58] LABS: Calcium 7.9 mg/dL (8.6-10.3); Potassium 4.2 mEq/L (3.5-5.1)
[2019-07-05] MEDS: Doxycycline 100 MG CAPSULE PO SCH (06:09)
[2019-07-05] MEDS: *HR* Heparin 5,000 UNIT/ML VIAL SQ SCH (06:09)
[2019-07-05] MEDS ORDERED: 0.9 % Sodium Chloride 500 ML IVC ONE (07:53)
[2019-07-05] MEDS ORDERED: 0.9 % Sodium Chloride 1,000 ML IVC SCH (08:00)
[2019-07-05] MEDS: Insulin LISPRO 300 UNITS/3 ML VIAL SQ SCH ×2 (09:18→11:49)
[2019-07-05] MEDS: Sennosides/Docusate Sodium TABLET PO SCH (09:25)
[2019-07-05] MEDS: Gabapentin 300 MG CAPSULE PO SCH (09:26)
[2019-07-05] MEDS: Furosemide 20 MG TABLET PO SCH (09:28)
[2019-07-05] MEDS: Miconazole 2% ointment 141 APPL/141 GM TUBE TP SCH (09:29)
[2019-07-05] MEDS: *HR* HYDROcodone/Acet 5/325 mg TABLET PO PRN (09:31)
[2019-07-05 11:07] VITALS: BP 122/70
[2019-07-05 13:04] LABS: Calcium 7.7 mg/dL (8.6-10.3); Potassium 4.1 mEq/L (3.5-5.1)
== END 2019-07-05 14:28 ==
LOC: 2ANU 17:30 → EMEROOARM 17:30 → SUATTDRO 21:28 → 2ANU 22:24
PROVIDERS: ADMIT Internal Medicine; ATTEND Family Medicine

== ENCOUNTER 2019-07-31 19:07 | Inpatient (IN) ==
[2019-07-31 20:00] LABS: INR 1.4; Prothrombin Time 16.1 Seconds (9.4-12.1)
[2019-07-31 20:02] LABS: Activated Partial Thrombo Time 30.4 Seconds (26.0-36.0)
[2019-07-31 20:08] LABS: Bilirubin,Urine Negative (Negative); Blood,Urine Large (Negative); Clarity,Urine Turbid (Clear); Color,Urine Yellow (Yellow); Glucose,Urine (UA) Normal (Normal); Ketones,Urine Negative (Negative); Leukocyte Esterase,Urine Large (Negative); Nitrite,Urine Negative (Negative); PH,Urine 6.5 pH Units (5.0-8.0); Protein,Urine 30 mg/dL (Neg-Trace); Specific Gravity,Urine 1.014 (1.010-1.025); Urobilinogen,Urine Normal (Normal)
[2019-07-31 20:10] LABS: Hyaline Casts,Urine Few per lpf (None-Few); Squamous Epithelial Cell,Urine Many per lpf (None-Few); WBC,Urine TNTC per hpf (0-3)
[2019-07-31 20:25] LABS: Basophils % 0.3 %; Eosinophils # 0.1 K/mcL (0.0-0.6); Eosinophils % 0.6 %; Hematocrit 32.9 % (37.5-50.1); Hemoglobin 10.9 g/dL (12.9-16.9); Immature Granulocytes % 0.6 % (0-4); Lymphocytes # 0.8 K/mcL (0.6-4.6); Lymphocytes % 8.6 %; Mean Corpuscular HGB Conc 33.1 g/dL (31.6-35.5); Mean Corpuscular Volume 87.5 fL (83.0-100.0); Mean Platelet Volume 9.4 fL (9.4-12.4); Monocytes # 0.9 K/mcL (0.0-1.3); Monocytes % 9.9 %; Neutrophils # 7.2 K/mcL (1.6-8.9); Platelet Count 123 K/mcL (140-400); Red Blood Count 3.76 M/mcL (4.19-5.50); Red Cell Distribution Width 17.9 % (11.5-14.5); White Blood Count 9.1 K/mcL (4.3-11.1)
[2019-07-31 20:29] LABS: RBC,Urine Present per hpf (0-3)
[2019-07-31 20:31] LABS: Bacteria,Urine Many per hpf (None-Few); Mucus,Urine Present per lpf (Few); Renal Epithelial Cells,Urine Present per hpf (None-Few); Yeast,Urine Present per hpf (None Seen)
[2019-07-31 20:50] LABS: Alanine Aminotransferase 25 Units/L (7-52); Albumin 2.3 g/dL (3.5-5.7); Albumin/Globulin Ratio 0.8 (1.1-2.2); Alkaline Phosphatase 300 Units/L (34-104); Aspartate Amino Transferase 42 Units/L (13-39); BUN/Creatinine Ratio 13 (6-26); Bilirubin,Direct 0.3 mg/dL (0.0-0.2); Bilirubin,Indirect 0.4 mg/dL (0.0-1.0); Bilirubin,Total 0.7 mg/dL (0.3-1.0); Blood Urea Nitrogen 20 mg/dL (8-23); Calcium 7.7 mg/dL (8.6-10.3); Carbon Dioxide 26 mEq/L (23-29); Chloride 97 mEq/L (98-107); Creatine Kinase 16 Units/L (30-223); Glucose 257 mg/dL (70-105); Osmolality,Calculated 289 (280-300); Potassium 3.9 mEq/L (3.5-5.1); Sodium 134 mEq/L (136-145); Total Protein 5.3 g/dL (6.4-8.9); eGFR For African Americans 53 (> 60); eGFR For Non-African Americans 43 (> 60)
[2019-07-31 21:01] LABS: Troponin I < 0.03 ng/mL (< 0.04)
[2019-07-31] MEDS ORDERED: 0.9 % Sodium Chloride 500 ML IVC STA (22:19)
[2019-07-31] MEDS ORDERED: cefTRIAXone 1,000 MG in Water for inj. (sterile) 10 ML IVP ONE (23:14)
[2019-07-31] MEDS ORDERED: Ampicillin 1,000 MG in 0.9 % Sodium Chloride Mini Bag 100 ML IVPB STA (23:15)
[2019-08-01] MEDS ORDERED: Naloxone 0.4 MG/ML INJ IVP PRN (01:03)
[2019-08-01] MEDS ORDERED: 0.9 % Sodium Chloride 1,000 ML IVC SCH (03:00)
[2019-08-01 05:10] LABS: Basophils % 0.1 %; Eosinophils # 0.2 K/mcL (0.0-0.6); Eosinophils % 2.4 %; Hemoglobin 9.9 g/dL (12.9-16.9); Immature Granulocytes % 0.5 % (0-4); Lymphocytes # 0.6 K/mcL (0.6-4.6); Lymphocytes % 7.5 %; Mean Corpuscular HGB Conc 34.1 g/dL (31.6-35.5); Mean Corpuscular Hemoglobin 29.6 pg (28.0-33.3); Mean Corpuscular Volume 86.6 fL (83.0-100.0); Mean Platelet Volume 9.2 fL (9.4-12.4); Monocytes # 0.8 K/mcL (0.0-1.3); Monocytes % 9.2 %; Neutrophils # 6.6 K/mcL (1.6-8.9); Platelet Count 105 K/mcL (140-400); Red Blood Count 3.35 M/mcL (4.19-5.50); Red Cell Distribution Width 17.7 % (11.5-14.5); Segmented Neutrophils % 80.3 %; White Blood Count 8.2 K/mcL (4.3-11.1)
[2019-08-01 05:26] LABS: Calcium 7.3 mg/dL (8.6-10.3); Potassium 3.9 mEq/L (3.5-5.1)
[2019-08-01] MEDS ORDERED: *HR* Dextrose 50 % in Water (Syg) 50 ML SYRINGE IVP PRN (09:01)
[2019-08-01] MEDS ORDERED: D5% in Water 1,000 ML IVC PRN (09:01)
[2019-08-01] MEDS ORDERED: Dextrose Gel 15 GM/37.5 ML TUBE PO PRN ×2 (09:01)
[2019-08-01] MEDS ORDERED: Gadolinium Contrast Agent (WT Based) IV PRN (10:13)
[2019-08-01] MEDS: Insulin LISPRO 300 UNITS/3 ML VIAL SQ SCH ×3 (12:24→21:51)
[2019-08-01] MEDS ORDERED: Sennosides 8.6 MG TABLET PO PRN (12:31)
[2019-08-01] MEDS ORDERED: Fluticasone Propionate Nasal 50 MCG/SPRAY BOTTLE NS PRN (12:31)
[2019-08-01] MEDS ORDERED: Triamcinolone Acet 0.1% CRM 15 GM TUBE TP PRN (12:31)
[2019-08-01] MEDS ORDERED: *HR* HYDROcodone/Acet 10/325 mg TABLET PO ONE (13:11)
[2019-08-01] MEDS ORDERED: *HR* FentaNYL (PF) 100 MCG/2 ML VIAL IVP ONE (15:05)
[2019-08-01] MEDS ORDERED: diazePAM 10 MG TABLET PO ONE (15:05)
[2019-08-01] MEDS: Loratadine 10 MG TABLET PO SCH (18:50)
[2019-08-01] MEDS: *HR* HYDROcodone/Acet 10/325 mg TABLET PO SCH (18:51)
[2019-08-01] MEDS: *HR* Heparin 5,000 UNIT/ML VIAL SQ SCH (18:51)
[2019-08-01] MEDS: Gabapentin 100 MG CAPSULE PO SCH (21:51)
[2019-08-02] MEDS: *HR* HYDROcodone/Acet 10/325 mg TABLET PO SCH ×5 (02:33→23:46)
[2019-08-02 05:32] LABS: Basophils % 0.1 %; Eosinophils # 0.3 K/mcL (0.0-0.6); Eosinophils % 3.1 %; Hematocrit 32.3 % (37.5-50.1); Hemoglobin 10.8 g/dL (12.9-16.9); Immature Granulocytes % 0.5 % (0-4); Lymphocytes # 1.1 K/mcL (0.6-4.6); Lymphocytes % 11.5 %; Mean Corpuscular HGB Conc 33.4 g/dL (31.6-35.5); Mean Corpuscular Hemoglobin 29.3 pg (28.0-33.3); Mean Corpuscular Volume 87.8 fL (83.0-100.0); Mean Platelet Volume 9.6 fL (9.4-12.4); Monocytes % 10.9 %; Platelet Count 137 K/mcL (140-400); Red Blood Count 3.68 M/mcL (4.19-5.50); Red Cell Distribution Width 18.1 % (11.5-14.5); Segmented Neutrophils % 73.9 %; White Blood Count 9.5 K/mcL (4.3-11.1)
[2019-08-02 05:43] LABS: BUN/Creatinine Ratio 14 (6-26); Blood Urea Nitrogen 19 mg/dL (8-23); Calcium 7.4 mg/dL (8.6-10.3); Carbon Dioxide 29 mEq/L (23-29); Chloride 102 mEq/L (98-107); Glucose 50 mg/dL (70-105); Osmolality,Calculated 280 (280-300); Potassium 3.7 mEq/L (3.5-5.1); Sodium 135 mEq/L (136-145); eGFR For African Americans > 60 (> 60); eGFR For Non-African Americans 50 (> 60)
[2019-08-02] MEDS: *HR* Heparin 5,000 UNIT/ML VIAL SQ SCH ×2 (06:22→17:30)
[2019-08-02] MEDS: Insulin LISPRO 300 UNITS/3 ML VIAL SQ SCH ×4 (07:34→21:09)
[2019-08-02] MEDS: Magnesium Oxide 400 MG TABLET PO SCH (08:13)
[2019-08-02] MEDS: Gabapentin 100 MG CAPSULE PO SCH ×2 (08:13→20:51)
[2019-08-02] MEDS: cefTRIAXone 1,000 MG in Water for inj. (sterile) 10 ML IVP SCH (08:16)
[2019-08-02] MEDS: Loratadine 10 MG TABLET PO SCH (17:30)
[2019-08-03 05:37] LABS: Basophils % 0.1 %; Eosinophils # 0.3 K/mcL (0.0-0.6); Eosinophils % 3.7 %; Hematocrit 30.8 % (37.5-50.1); Hemoglobin 10.1 g/dL (12.9-16.9); Immature Granulocytes % 0.4 % (0-4); Lymphocytes # 0.7 K/mcL (0.6-4.6); Lymphocytes % 10.7 %; Mean Corpuscular HGB Conc 32.8 g/dL (31.6-35.5); Mean Corpuscular Hemoglobin 29.1 pg (28.0-33.3); Mean Corpuscular Volume 88.8 fL (83.0-100.0); Mean Platelet Volume 9.3 fL (9.4-12.4); Monocytes # 0.7 K/mcL (0.0-1.3); Monocytes % 10.4 %; Neutrophils # 5.1 K/mcL (1.6-8.9); Platelet Count 108 K/mcL (140-400); Red Blood Count 3.47 M/mcL (4.19-5.50); Segmented Neutrophils % 74.7 %; White Blood Count 6.8 K/mcL (4.3-11.1)
[2019-08-03] MEDS: *HR* HYDROcodone/Acet 10/325 mg TABLET PO SCH ×4 (05:45→23:25)
[2019-08-03] MEDS: *HR* Heparin 5,000 UNIT/ML VIAL SQ SCH ×2 (05:45→17:18)
[2019-08-03 06:03] LABS: Calcium 7.1 mg/dL (8.6-10.3); Potassium 3.9 mEq/L (3.5-5.1)
[2019-08-03] MEDS: Insulin LISPRO 300 UNITS/3 ML VIAL SQ SCH ×4 (07:17→21:25)
[2019-08-03] MEDS: Magnesium Oxide 400 MG TABLET PO SCH (09:30)
[2019-08-03] MEDS: cefTRIAXone 1,000 MG in Water for inj. (sterile) 10 ML IVP SCH (09:30)
[2019-08-03] MEDS: Gabapentin 100 MG CAPSULE PO SCH ×2 (09:30→21:25)
[2019-08-03] MEDS: Ertapenem 1,000 MG in 0.9 % Sodium Chloride Mini Bag 100 ML IVPB SCH (11:54)
[2019-08-03] MEDS: Loratadine 10 MG TABLET PO SCH (17:18)
[2019-08-04 02:02] LABS: Basophils % 0.5 %; Eosinophils # 0.3 K/mcL (0.0-0.6); Eosinophils % 4.7 %; Hematocrit 31.2 % (37.5-50.1); Hemoglobin 10.2 g/dL (12.9-16.9); Immature Granulocytes % 0.5 % (0-4); Lymphocytes # 0.8 K/mcL (0.6-4.6); Lymphocytes % 12.2 %; Mean Corpuscular HGB Conc 32.7 g/dL (31.6-35.5); Mean Corpuscular Hemoglobin 28.9 pg (28.0-33.3); Mean Corpuscular Volume 88.4 fL (83.0-100.0); Mean Platelet Volume 9.4 fL (9.4-12.4); Monocytes # 0.7 K/mcL (0.0-1.3); Neutrophils # 4.6 K/mcL (1.6-8.9); Platelet Count 121 K/mcL (140-400); Red Blood Count 3.53 M/mcL (4.19-5.50); Red Cell Distribution Width 17.8 % (11.5-14.5); Segmented Neutrophils % 71.1 %; White Blood Count 6.4 K/mcL (4.3-11.1)
[2019-08-04 02:05] LABS: INR 1.2; Prothrombin Time 14.1 Seconds (9.4-12.1)
[2019-08-04 02:20] LABS: BUN/Creatinine Ratio 15 (6-26); Blood Urea Nitrogen 19 mg/dL (8-23); Calcium 7.2 mg/dL (8.6-10.3); Carbon Dioxide 29 mEq/L (23-29); Chloride 105 mEq/L (98-107); Glucose 89 mg/dL (70-105); Osmolality,Calculated 290 (280-300); Potassium 3.7 mEq/L (3.5-5.1); Sodium 139 mEq/L (136-145); eGFR For African Americans > 60 (> 60); eGFR For Non-African Americans 53 (> 60)
[2019-08-04] MEDS: *HR* HYDROcodone/Acet 10/325 mg TABLET PO SCH ×4 (05:38→23:47)
[2019-08-04] MEDS: *HR* Heparin 5,000 UNIT/ML VIAL SQ SCH (05:39)
[2019-08-04] MEDS: Insulin LISPRO 300 UNITS/3 ML VIAL SQ SCH ×4 (07:41→21:55)
[2019-08-04] MEDS ORDERED: 0.9 % Sodium Chloride 500 ML ONE (09:05)
[2019-08-04] MEDS: Gabapentin 100 MG CAPSULE PO SCH ×3 (11:12→21:55)
[2019-08-04] MEDS: Magnesium Oxide 400 MG TABLET PO SCH (11:12)
[2019-08-04] MEDS: Ertapenem 1,000 MG in 0.9 % Sodium Chloride Mini Bag 100 ML IVPB SCH (11:13)
[2019-08-04] MEDS: Loratadine 10 MG TABLET PO SCH (18:04)
[2019-08-04] MEDS: Meropenem 1,000 MG in 0.9 % Sodium Chloride Mini Bag 100 ML IVPB SCH ×2 (18:04→23:46)
[2019-08-04] MEDS: DAPTOMYCIN IVPB SCH (18:55)
[2019-08-04] MEDS: SODIUM CHLORIDE 0.9% IVPB SCH (18:55)
[2019-08-05] MEDS: *HR* HYDROcodone/Acet 10/325 mg TABLET PO SCH ×3 (05:54→18:07)
[2019-08-05 06:32] LABS: Basophils % 0.3 %; Eosinophils # 0.3 K/mcL (0.0-0.6); Eosinophils % 4.4 %; Hematocrit 30.6 % (37.5-50.1); Hemoglobin 9.8 g/dL (12.9-16.9); Immature Granulocytes % 0.1 % (0-4); Lymphocytes % 14.4 %; Mean Corpuscular Hemoglobin 29.5 pg (28.0-33.3); Mean Corpuscular Volume 92.2 fL (83.0-100.0); Mean Platelet Volume 9.3 fL (9.4-12.4); Monocytes # 0.8 K/mcL (0.0-1.3); Neutrophils # 4.9 K/mcL (1.6-8.9); Platelet Count 119 K/mcL (140-400); Red Blood Count 3.32 M/mcL (4.19-5.50); Red Cell Distribution Width 17.9 % (11.5-14.5); Segmented Neutrophils % 69.8 %; White Blood Count 7.1 K/mcL (4.3-11.1)
[2019-08-05] MEDS: Insulin LISPRO 300 UNITS/3 ML VIAL SQ SCH ×4 (07:30→20:22)
[2019-08-05] MEDS: Meropenem 1,000 MG in 0.9 % Sodium Chloride Mini Bag 100 ML IVPB SCH ×2 (11:48→18:08)
[2019-08-05] MEDS: Gabapentin 100 MG CAPSULE PO SCH ×3 (11:48→22:39)
[2019-08-05] MEDS: Magnesium Oxide 400 MG TABLET PO SCH (11:48)
[2019-08-05] MEDS: Loratadine 10 MG TABLET PO SCH (18:07)
[2019-08-05] MEDS: SODIUM CHLORIDE 0.9% IVPB SCH (18:08)
[2019-08-05] MEDS: DAPTOMYCIN IVPB SCH (18:08)
[2019-08-05] MEDS: *HR* Heparin 5,000 UNIT/ML VIAL SQ SCH (18:09)
[2019-08-06] MEDS: Meropenem 1,000 MG in 0.9 % Sodium Chloride Mini Bag 100 ML IVPB SCH ×3 (00:33→17:21)
[2019-08-06] MEDS: *HR* HYDROcodone/Acet 10/325 mg TABLET PO SCH ×4 (00:33→17:20)
[2019-08-06 05:29] LABS: Basophils % 0.5 %; Eosinophils # 0.2 K/mcL (0.0-0.6); Eosinophils % 4.1 %; Hematocrit 32.5 % (37.5-50.1); Hemoglobin 10.4 g/dL (12.9-16.9); Immature Granulocytes % 0.2 % (0-4); Lymphocytes # 0.9 K/mcL (0.6-4.6); Lymphocytes % 15.5 %; Mean Corpuscular Hemoglobin 29.5 pg (28.0-33.3); Mean Corpuscular Volume 92.1 fL (83.0-100.0); Monocytes # 0.6 K/mcL (0.0-1.3); Monocytes % 9.8 %; Neutrophils # 4.1 K/mcL (1.6-8.9); Platelet Count 141 K/mcL (140-400); Red Blood Count 3.53 M/mcL (4.19-5.50); Red Cell Distribution Width 18.1 % (11.5-14.5); Segmented Neutrophils % 69.9 %; White Blood Count 5.8 K/mcL (4.3-11.1)
[2019-08-06 05:41] LABS: BUN/Creatinine Ratio 13 (6-26); Blood Urea Nitrogen 17 mg/dL (8-23); Calcium 7.4 mg/dL (8.6-10.3); Carbon Dioxide 29 mEq/L (23-29); Chloride 103 mEq/L (98-107); Glucose 144 mg/dL (70-105); Osmolality,Calculated 294 (280-300); Potassium 3.7 mEq/L (3.5-5.1); Sodium 140 mEq/L (136-145); eGFR For African Americans > 60 (> 60); eGFR For Non-African Americans 52 (> 60)
[2019-08-06] MEDS: *HR* Heparin 5,000 UNIT/ML VIAL SQ SCH ×2 (06:26→19:33)
[2019-08-06] MEDS: Insulin LISPRO 300 UNITS/3 ML VIAL SQ SCH ×4 (07:30→20:12)
[2019-08-06] MEDS ORDERED: Nystatin POWDER 30 GM BOTTLE TP SCH (09:00)
[2019-08-06] MEDS: Magnesium Oxide 400 MG TABLET PO SCH (10:59)
[2019-08-06] MEDS: Gabapentin 100 MG CAPSULE PO SCH ×3 (10:59→21:11)
[2019-08-06] MEDS: Loratadine 10 MG TABLET PO SCH (17:20)
[2019-08-06] MEDS: SODIUM CHLORIDE 0.9% IVPB SCH (17:20)
[2019-08-06] MEDS: DAPTOMYCIN IVPB SCH (17:20)
[2019-08-06 20:02] VITALS: BP 123/62
== END 2019-08-06 21:30 | disposition short-term general hospital (02) | DRG 552 ==
LOC: 3BNU 19:07 → EMEROOARM 19:07 → SUATTDRO 22:51 → 3BNU 23:27
PROVIDERS: ADMIT Student in an Organized Health Care Education/Training Program; ATTEND Internal Medicine